=== PATIENT | female | born 1970 | race Caucasian/White ===

== ENCOUNTER 2016-12-27 20:26 | Emergency (ER) | payer OTHER ==
[~2016-12-27] VITALS: Ht 175.3 cm; Wt 95.5 kg
[~2016-12-27 20:26] MED LIST: NAPR220C2 PO
[2016-12-27 20:33] VITALS: Ht 175.3 cm; Wt 95.5 kg
--- NOTE | 2016-12-27 22:35 | RADRPT ---
PROCEDURE: US left lower extremity venous Doppler CLINICAL INDICATION: Swelling TECHNIQUE: Multiple sonographic images of the left lower extremity deep venous system was obtained utilizing grayscale, color-flow, compressive sonography and Doppler imaging with augmentation. COMPARISON: No pertinent prior examinations were submitted for comparison. FINDINGS: There is normal compressibility and flow within the left common femoral, superficial femoral, and po pliteal veins. The calf veins are not well visualized. IMPRESSION: No sonographic evidence for left deep venous thrombosis. RPTAT: HIKT .Aubrey Thakur MD, MD Date Time Electronically viewed and signed by .Aubrey Thakur MD, on 12/27/2016 22:35 .T/
[2016-12-27] MEDS ORDERED: HYDR-906 PO (23:01)
[2016-12-27] MEDS ORDERED: IBUP-1542 PO (23:02)
--- NOTE | 2016-12-27 23:07 | ERD ---
ER Documentation Chief Complaint Date/Time DATE: 12/27/16 TIME: 23:04 Chief Complaint pain left leg since yesterday HPI This is a 46-year-old female who says she woke yesterday with some pain in her left ankle with some mild swelling. She says today is gotten progressively worse. The swelling is mild located in the left malleolus laterally on the ankle and some on the foot. She is concerned she has a DVT and wants to have an ultrasound. There is no pain in the calf or thigh no swelling erythema no shortness of breath chest pain. Patient does not recall any trauma or twisting of the ankle ROS All systems reviewed and are negative except as per history of present illness. Medications Home Meds Active Scripts Ibuprofen* (Motrin*) 600 Mg Tab, 600 MG PO Q8, #30 TAB Prov:WESLEY SANCHEZSTWILLIAMS Kvng. DO 12/27/16 Hydrocodone/Acetaminophen ([place] 5-325 Tablet) 1 Each Tablet, 1 TAB PO Q6H Y for PAIN, #20 TAB Prov:LUKE SANCHEZ AZulma DO 12/27/16 Reported Medications Naproxen* (Aleve*) 220 Mg Capsule, 220 MG PO Y 02/28/13 Allergies Allergies: Coded Allergies: amoxicillin (Verified Allergy, Unknown, sob, 12/27/16) latex (Verified Allergy, Unknown, 02/28/13) tetracycline (Verified Allergy, Unknown, sob, 12/27/16) PMhx/Soc History of Surgery: Yes (C SECTION , GALL BLADDER, bilateral masectomy) Hx Psychiatric Problems: Yes (depression) Hx Alcohol Use: No Hx Substance Use: No Hx Tobacco Use: Yes Smoking Status: Former smoker FmHx Family History: No coronary disease Physical Exam Vitals Vital Signs Date Time Temp Pulse Resp B/P Pulse Ox O2 Delivery O2 Flow Rate FiO2 12/27/16 20:33 98.8 83 20 106/56 99 Physical Exam Const: Well-developed, well-nourished Head: Atraumatic, normocephalic Eyes: Normal Conjunctiva, PERRLA, EOMI, normal sclera, no nystagmus ENT: Normal External Ears, Nose and Mouth, moist mucus membranes. Neck: Full range of motion. No meningismus, no lymphadenopathy. Resp: Clear to auscultation bilaterally, no wheezing, rhonchi, rales Cardio: Regular rate and rhythm, no murmurs, S1 S2 present Abd: Soft, non tender x 4, non distended. Normal bowel sounds, no guarding or rebound, no pulsitile abdominal masses or bruits Skin: No petechiae or rashes, no ecchymosis , no maculopapular rash Back: No midline or flank tenderness Ext: No cyanosis, or edema, FROM x 4, normal inspection, neurovascularly intact x 4 left ankle has some mild swelling to the foot and lateral malleolus no erythema no calf pain negative Homans sign no cords Neur: Awake and alert, STR 5/5 x 4, sensation intact x 4, no focal findings, cerebellum intact Psych: Normal Mood and Affect Procedures/MDM PROCEDURE: US left lower extremity venous Doppler CLINICAL INDICATION: Swelling TECHNIQUE: Multiple sonographic images of the left lower extremity deep venous system was obtained utilizing grayscale, color-flow, compressive sonography and Doppler imaging with augmentation. COMPARISON: No pertinent prior examinations were submitted for comparison. FINDINGS: There is normal compressibility and flow within the left common femoral, superficial femoral, and popliteal veins. The calf veins are not well visualized. IMPRESSION: No sonographic evidence for left deep venous thrombosis. RPTAT: HIKT .Aubrey Thakur MD, MD Date Time Electronically viewed and signed by .Aubrey Thakur MD, MD on 12/27/2016 22:35 .T/ CC: LUKE SANCHEZ DO Discharge home and observe for any more swelling if she is worsening to come back for repeat sono Departure Diagnosis: Primary Impression: Left ankle pain Chronicity: acute Qualified Code: M25.572 - Acute left ankle pain Condition: Stable Patient Instructions: Sprain, Ankle, With X-Ray LUKE SANCHEZ DO December 27, 2016 23:07
[2016-12-27] MEDS ORDERED: CEPH-443 PO (23:12)
== END 2016-12-27 23:14 | disposition home or self-care (01) ==
LOC: FTE 20:26
DX: M25.572 Pain in left ankle and joints of left foot (principal); Z87.891 Personal history of nicotine dependence; Z91.040 Latex allergy status
CPT/HCPCS: 93971; Z7502

== ENCOUNTER 2017-01-15 19:51 | Emergency (ER) | payer OTHER ==
[~2017-01-15] VITALS: Ht 162.6 cm; Wt 92.0 kg
[~2017-01-15 19:51] MED LIST changes: +CEPH-443 PO; +HYDR-906 PO; +IBUP-1542 PO
[2017-01-15 19:53] VITALS: Ht 162.6 cm; Wt 92.0 kg
--- NOTE | 2017-01-15 20:08 | ERA ---
ER Documentation Chief Complaint Date/Time DATE: 01/15/17 TIME: 20:07 Chief Complaint Left-sided chest pressure radiating to right shoulder HPI The patient is a 46-year-old female, presenting to the ER because of left-sided chest pressure radiating to the right shoulder a few hours ago. She has similar symptoms previously. She complains of anxiety, the pain is worse with movement. She complains of nausea but no vomiting, denies chest pain with exertion of vomiting or diaphoresis, dyspnea, abdominal pain, dysuria, diarrhea , dysuria. She does not smoke nor drink. She normally takes pain medication for chronic low back pain Past medical history: Breast cancer, chronic low back pain, history of bradycardia, anxiety Past surgical history: , cholecystectomy, mastectomy in July 2016 ROS All systems reviewed and are negative except as per history of present illness. Medications Home Meds Active Scripts Alprazolam* (Xanax*) 0.5 Mg Tab, 0.5 MG PO QHS Y for ANXIETY, #5 TAB Prov:ARNALDO DIAZ MD 01/15/17 Cephalexin* (Keflex*) 500 Mg Capsule, 500 MG PO QID for 7 Days, CAP Prov:WESLEY SANCHEZSTALEXYS Purdy DO 12/27/16 Ibuprofen* (Motrin*) 600 Mg Tab, 600 MG PO Q8, #30 TAB Prov:LUKE SANCHEZ DO 12/27/16 Hydrocodone/Acetaminophen ([place] 5-325 Tablet) 1 Each Tablet, 1 TAB PO Q6H Y for PAIN, #20 TAB Prov:LUKE SANCHEZ DO 12/27/16 Reported Medications Naproxen* (Aleve*) 220 Mg Capsule, 220 MG PO Y 02/28/13 Allergies Allergies: Coded Allergies: cephalexin (Verified Allergy, Intermediate, 01/15/17) amoxicillin (Verified Allergy, Unknown, sob, 01/15/17) latex (Verified Allergy, Unknown, 01/15/17) tetracycline (Verified Allergy, Unknown, sob, 01/15/17) PMhx/Soc History of Surgery: Yes (C SECTION , GALL BLADDER, bilateral masectomy) Hx Psychiatric Problems: Yes (depression) Hx Alcohol Use: No Hx Substance Use: No Hx Tobacco Use: Yes Physical Exam Vitals Vital Signs Date Time Temp Pulse Resp B/P Pulse Ox O2 Delivery O2 Flow Rate FiO2 01/15/17 20:45 Nasal Cannula 2 01/15/17 19:53 99.7 64 20 139/65 97 Physical Exam Const: No acute distress. Head: Atraumatic. Eyes: Normal Conjunctiva. ENT: Normal External Ears, Nose and Mouth. Neck: Full range of motion. No meningismus. Resp: Clear to auscultation bilaterally. Cardio: Regular but bradycardic Abd: Soft, non distended, normal bowel sounds, non tender. Skin: No petechiae or rashes. Back: No midline or flank tenderness. Ext: No cyanosis, or edema. Neur: Awake and alert. No focal deficit Psych: Normal Mood and Affect. Result Diagram: 01/15/17202901/15/172029 Results 24 hrs Laboratory Tests Test 01/15/17 20:30 White Blood Count 6.810^3/ul Red Blood Count 3.8610^6/ul Hemoglobin 11.7g/dl Hematocrit 36.0% Mean Corpuscular Volume 93.3fl Mean Corpuscular Hemoglobin 30.3pg Mean Corpuscular Hemoglobin Concent 32.5g/dl Red Cell Distribution Width 13.6% Platelet Count 78152^3/UL Mean Platelet Volume 10.5fl Neutrophils % 53.2% Lymphocytes % 36.0% Monocytes % 7.0% Eosinophils % 2.8% Basophils % 0.9% Nucleated Red Blood Cells % 0.0/100WBC Neutrophils # 3.610^3/ul Lymphocytes # 2.510^3/ul Monocytes # 0.510^3/ul Eosinophils # 0.210^3/ul Basophils # 0.110^3/ul Nucleated Red Blood Cells # 0.010^3/ul Prothrombin Time 12.9Sec Prothrombin Time Ratio 1.0 INR International Normalized Ratio 0.97 Activated Partial Thromboplast Time 28.8Sec Sodium Level 137mmol/L Potassium Level 3.8mmol/L Chloride Level 106mmol/L Carbon Dioxide Level 27mmol/L Anion Gap 8 Blood Urea Nitrogen 12mg/dl Creatinine 0.73mg/dl Glucose Level 74mg/dl Calcium Level 9.0mg/dl Troponin I < 0.012ng/ml Current Medications Medications (Trade) Dose Ordered Sig/Bria Route PRN Reason Start Time Stop Time Status Last Admin Dose Admin Ondansetron HCl (Zofran Inj) 4 mg ONCE STAT IV 01/15/17 20:16 01/15/17 20:18 DC 01/15/17 20:32 Morphine Sulfate (morphine) 4 mg ONCE STAT IV 01/15/17 20:16 01/15/17 20:18 DC 01/15/17 20:33 IV Flush 10 ml 10 ml STK-MED ONCE .ROUTE 01/15/17 21:22 01/15/17 21:23 DC 01/15/17 21:39 Sodium Chloride 100 ml @ ud STK-MED ONCE .ROUTE 01/15/17 21:22 01/15/17 21:23 DC 01/15/17 21:39 Iohexol (Omnipaque) 100 ml @ ud STK-MED ONCE .ROUTE 01/15/17 21:22 01/15/17 21:23 DC 01/15/17 21:40 Iohexol (Omnipaque 350mg/ ml) 50 ml STK-MED ONCE .ROUTE 01/15/17 21:23 01/15/17 21:24 DC 01/15/17 21:40 Morphine Sulfate (morphine) 4 mg ONCE STAT IV 01/15/17 21:43 01/15/17 21:44 DC 01/15/17 21:47 Procedures/[place] [id number] Radiology Main Line: [phone] DIAGNOSTIC IMAGING REPORT Patient: ADAN BLAS : 1970 Age: 46 Sex: F MR #: [id number] DOS: 01/15/172015 Ordering MD: ARNALDO DIAZ MD Location: E/R Room/Bed: PROCEDURE: CT chest with contrast/PE protocol CLINICAL INDICATION: Chest pain and shortness of breath. History of breast cancer TECHNIQUE: The study was performed from the thoracic inlet to the upper abdomen with the use of 120 cc of Omnipaque 350 intravenous contrast material per PE protocol. Coronal/sagittal reformatted images and coronal MIP images were generated. The images were reviewed on a PACS workstation. CTDIvol = 40.48 mGy and DLP= 384.02 mGycm. COMPARISON: Chest x-ray 01/15/2017 FINDINGS: Lungs, airway and pleura: The trachea and bronchi are patent as well as normal in caliber. The lungs are clear of infiltrates, masses or nodules. The pleural spaces are clear, without effusions. Mediastinum, giana and cardiovascular: The heart is normal in size. There is no evidence for pericardial effusion. The thoracic aorta is normal in caliber and without evidence of dissection. There are no filling defects within the pulmonary arteries to suggest emboli. There is no evidence for hilar mass and no mediastinal adenopathy is present. The esophagus is normal in caliber. Osseous structures and musculoskeletal findings: There is preservation of bone architecture and mineralization with no evidence for fracture, lytic or blastic lesion. Mild thoracic spondylosis is present. Postoperative findings of the bilateral breasts are compatible with mastectomy and reconstructive surgery. The axillary regions are unremarkable. Visualized upper abdomen: Cholecystectomy clips are present. The adrenal glands are normal bilaterally. RPTAT:HJJR IMPRESSION: 1. No evidence for pulmonary embolism or acute intrathoracic abnormality. 2. Postoperative changes of the chest wall are compatible with the provided history. 3. No evidence of metastatic disease. Physician Lexi Date Time Electronically viewed and signed by Physician Lexi on 01/15/2017 21:47 JR/ CC: ARNALDO DIAZ MD [place] [address] Radiology Main Line: [phone] DIAGNOSTIC IMAGING REPORT Patient: ADAN BLAS : 1970 Age: 46 Sex: F MR #: [id number] DOS: 01/15/172015 Ordering MD: ARNALDO DIAZ MD Location: E/R Room/Bed: PROCEDURE: XR Chest. CLINICAL INDICATION: Chest pain. TECHNIQUE: PA and Lateral views of the chest were obtained. COMPARISON: None. FINDINGS: Heart size is at upper limits of normal. The lungs are clear. No signs of pleural fluid or pneumothorax are seen. The osseous structures and soft tissues are unremarkable. IMPRESSION: No evidence for active cardiopulmonary disease. RPTAT: UU Elizabeth Kuhn Physician Date Time Electronically viewed and signed by Elizabeth Kuhn Physician on 01/15/2017 20:59 RS/ CC: ARNALDO DIAZ MD EK:56 PM read by emergency physician Rate/Rhythm: Sinus bradycardia 53 beats/min QRS, ST, T-waves: No ST elevation, no T inversion Impression: Abnormal EKG EK:56 PM read by emergency physician Rate/Rhythm: Sinus bradycardia 46 beats/min QRS, ST, T-waves: No ST elevation, no T inversion Impression: Abnormal EKG MEDICAL MAKING DECISION: The patient is a 46-year-old female, presenting to the ER because of acute chest pain of unclear etiology, most likely acute musculoskeletal pain and acute anxiety. She was treated with morphine formula IV 2 for pain, Zofran 4 IV 1 for nausea with good response The differential diagnoses considered include but are not limited to acute coronary syndrome, acute myocardial infarction, pericarditis, pulmonary embolism , aortic dissection, pneumonia, pleural effusion, pneumothorax, GERD, chest wall pain. Departure Diagnosis: Primary Impression: Chest pain Additional Impressions: Anxiety Anemia Condition: Good Comments I discussed the findings with the patient. I advised the patient to follow-up with the primary physician in about 1-2 days, sooner if needed and return if any concern. She was discharged with Xanax 0.5 mg at bedtime, dispense 5 The patient's blood pressure was elevated (>120/80) but appears stable without evidence of hypertension emergency or urgency. The patient was counseled about the risks of hypertension and urged to pursue outpatient monitoring and therapy within a week with their primary care physician. ARNALDO DIAZ MD January 15, 2017 20:08
[2017-01-15] MEDS ORDERED: ONDANSETRON 4 MG INJ IV STA (20:16)
[2017-01-15] MEDS ORDERED: morphine 4 MG/ML VIAL IV STA ×2 (20:16→21:43)
[2017-01-15 20:48] LABS: ADD SCAN DIFF NO
[2017-01-15 20:55] LABS: BASOPHIL # 0.1 10^3/ul (0.0-0.1); BASOPHILS % 0.9 % (0.0-2.0); EOSINOPHILS # 0.2 10^3/ul (0.0-0.5); EOSINOPHILS % 2.8 % (0.0-7.0); HEMOGLOBIN 11.7 g/dl (12.0-16.0); LYMPHOCYTES # 2.5 10^3/ul (0.8-2.9); MEAN CORPUSCULAR HEMOGLOBIN 30.3 pg (29.0-33.0); MEAN CORPUSCULAR HGB CONC 32.5 g/dl (32.0-37.0); MEAN CORPUSCULAR VOLUME 93.3 fl (82.0-101.0); MEAN PLATELET VOLUME 10.5 fl (7.4-10.4); MONOCYTE # 0.5 10^3/ul (0.3-0.9); NEUTROPHIL # 3.6 10^3/ul (1.6-7.5); NEUTROPHILS % 53.2 % (39.0-77.0); PLATELET COUNT 194 10^3/UL (140-415); RED BLOOD COUNT 3.86 10^6/ul (4.20-5.40); RED CELL DISTRIBUTION WIDTH 13.6 % (11.5-14.5); WHITE BLOOD COUNT 6.8 10^3/ul (4.8-10.8)
--- NOTE | 2017-01-15 20:59 | RADRPT ---
PROCEDURE: XR Chest. CLINICAL INDICATION: Chest pain. TECHNIQUE: PA and Lateral views of the chest were obtained. COMPARISON: None. FINDINGS: Heart size is at upper limits of normal. The lungs are clear. No signs of pleural fluid or pneumotho rax are seen. The osseous structures and soft tissues are unremarkable. IMPRESSION: No evidence for active cardiopulmonary disease. RPTAT: UU Physician Mitesh Date Time Electronically viewed and signed by Physician Mitesh on 01/15/2017 20:59 RS/
[2017-01-15 21:13] LABS: INR 0.97; PROTIME 12.9 Sec (12.2-14.2)
[2017-01-15 21:14] LABS: PARTIAL THROMBOPLASTIN TIME 28.8 Sec (25.0-35.0)
[2017-01-15 21:15] LABS: ANION GAP 8 (8-16); BLOOD UREA NITROGEN 12 mg/dl (7-20); CARBON DIOXIDE 27 mmol/L (21-31); CHLORIDE 106 mmol/L (97-110); CREATININE 0.73 mg/dl (0.44-1.00); GLUCOSE 74 mg/dl (70-220); POTASSIUM 3.8 mmol/L (3.5-5.1); SODIUM 137 mmol/L (135-144)
[2017-01-15] MEDS ORDERED: SOD CHLORIDE 0.9% 100 ML ONE (21:22)
[2017-01-15] MEDS ORDERED: IOHEXOL 100 ML ONE (21:22)
[2017-01-15] MEDS ORDERED: IOHEXOL 350MG/ML 50 ML BTL ONE (21:23)
[2017-01-15 21:27] LABS: TROPONIN-I < 0.012 ng/ml (0.00-0.12)
--- NOTE | 2017-01-15 21:47 | RADRPT ---
PROCEDURE: CT chest with contrast/PE protocol CLINICAL INDICATION: Chest pain and shortness of breath. History of breast cancer TECHNIQUE: The study was performed from the thoracic inlet to the upper abdomen with the use of 12 0 cc of Omnipaque 350 intravenous contrast material per PE protocol. Coronal/sagittal reformatted im ages and coronal MIP images were generated. The images were reviewed on a PACS workstation. CTDIvol = 40.48 mGy and DLP= 384.02 mGycm. COMPARISON: Chest x-ray 01/15/2017 FINDINGS: Lungs, airway and pleura: The trachea and bronchi are patent as well as normal in caliber. The gerardo gs are clear of infiltrates, masses or nodules. The pleural spaces are clear, without effusions. Mediastinum, giana and cardiovascular: The heart is normal in size. There is no evidence for perica rdial effusion. The thoracic aorta is normal in caliber and without evidence of dissection. There a re no filling defects within the pulmonary arteries to suggest emboli. There is no evidence for giana r mass and no mediastinal adenopathy is present. The esophagus is normal in caliber. Osseous structures and musculoskeletal findings: There is preservation of bone architecture and min eralization with no evidence for fracture, lytic or blastic lesion. Mild thoracic spondylosis is pr esent. Postoperative findings of the bilateral breasts are compatible with mastectomy and reconstru ctive surgery. The axillary regions are unremarkable. Visualized upper abdomen: Cholecystectomy clips are present. The adrenal glands are normal bilater ally. RPTAT:HJJR IMPRESSION: 1. No evidence for pulmonary embolism or acute intrathoracic abnormality. 2. Postoperative changes of the chest wall are compatible with the provided history. 3. No evidence of metastatic disease. Physician Lexi Date Time Electronically viewed and signed by Physician Lexi on 01/15/2017 21:47 /
[2017-01-15] MEDS ORDERED: ALPR0.5T PO (22:20)
[2017-01-15 22:46] VITALS: BP 130/75; PULSE 64; RESP 18
== END 2017-01-15 22:47 | disposition home or self-care (01) ==
LOC: E/R 19:51
DX: R07.9 Chest pain, unspecified (principal); F41.9 Anxiety disorder, unspecified; D64.9 Anemia, unspecified; R11.0 Nausea; Z91.040 Latex allergy status; Z87.891 Personal history of nicotine dependence; Z85.3 Personal history of malignant neoplasm of breast
CPT/HCPCS: 36415; 71010; 71275; 80048; 84484; 85025; 85610; 85730; 96374; 96375; 96376; J2270; J2405; Q9967; Z7502; Z7610; 93005

== ENCOUNTER 2017-01-17 13:58 | Inpatient (IN) | payer OTHER ==
[~2017-01-17] VITALS: Ht 175.3 cm; Wt 96.1 kg
[~2017-01-17 13:58] MED LIST changes: +ALPR0.5T PO
[2017-01-17] MEDS ORDERED: SOD CHLORIDE 0.9% 1,000 ML IV STA (14:16)
[2017-01-17] MEDS ORDERED: morphine 4 MG/ML VIAL IV STA (14:16)
[2017-01-17] MEDS ORDERED: ONDANSETRON 4 MG INJ IV STA ×2 (14:16→18:20)
[2017-01-17 14:47] LABS: ADD SCAN DIFF NO; BASOPHILS % 0.6 % (0.0-2.0); EOSINOPHILS % 0.2 % (0.0-7.0); HEMATOCRIT 35.7 % (37.0-47.0); HEMOGLOBIN 11.6 g/dl (12.0-16.0); LYMPHOCYTES # 1.3 10^3/ul (0.8-2.9); LYMPHOCYTES % 19.9 % (15.0-51.0); MEAN CORPUSCULAR HEMOGLOBIN 30.4 pg (29.0-33.0); MEAN CORPUSCULAR HGB CONC 32.5 g/dl (32.0-37.0); MEAN CORPUSCULAR VOLUME 93.5 fl (82.0-101.0); MEAN PLATELET VOLUME 10.6 fl (7.4-10.4); MONOCYTE # 0.3 10^3/ul (0.3-0.9); MONOCYTES % 5.4 % (0.0-11.0); NEUTROPHIL # 4.7 10^3/ul (1.6-7.5); NEUTROPHILS % 73.7 % (39.0-77.0); PLATELET COUNT 177 10^3/UL (140-415); RED BLOOD COUNT 3.82 10^6/ul (4.20-5.40); RED CELL DISTRIBUTION WIDTH 13.6 % (11.5-14.5); WHITE BLOOD COUNT 6.3 10^3/ul (4.8-10.8)
[2017-01-17 15:09] LABS: INR 1.04; PARTIAL THROMBOPLASTIN TIME 27.2 Sec (25.0-35.0); PROTIME 13.6 Sec (12.2-14.2); PT RATIO 1.1
[2017-01-17 15:17] LABS: ALBUMIN 3.8 g/dl (3.3-4.9); CHLORIDE 114 mmol/L (97-110)
[2017-01-17 15:18] LABS: POTASSIUM 3.8 mmol/L (3.5-5.1); SODIUM 145 mmol/L (135-144)
[2017-01-17 15:20] LABS: ALBUMIN/GLOBULIN RATIO 1.18; ALKALINE PHOSPHATASE 47 IU/L (42-121); ANION GAP 8 (8-16); ASPARTATE AMINO TRANSFERASE 20 IU/L (15-46); BILIRUBIN,INDIRECT 0.2 mg/dl (0-1.1); BILIRUBIN,TOTAL 0.2 mg/dl (0.2-1.3); CARBON DIOXIDE 27 mmol/L (21-31); CREATININE 0.66 mg/dl (0.44-1.00)
[2017-01-17 15:21] LABS: ALANINE AMINOTRANSFERASE 32 IU/L (13-69); BLOOD UREA NITROGEN 9 mg/dl (7-20); CALCIUM 8.8 mg/dl (8.4-10.2); GLUCOSE 90 mg/dl (70-220)
[2017-01-17] MEDS ORDERED: LIDOCAINE/MYLANTA 40 ML BTL PO ONE (15:30)
[2017-01-17 15:41] LABS: TROPONIN-I < 0.012 ng/ml (0.00-0.12)
[2017-01-17] MEDS ORDERED: NOL20 PO (15:44)
[2017-01-17] MEDS ORDERED: OXYC30TA PO (15:45)
[2017-01-17] MEDS ORDERED: CARI350T PO (15:45)
[2017-01-17] MEDS ORDERED: MORP60TA37 PO (15:45)
--- NOTE | 2017-01-17 15:45 | RADRPT ---
PROCEDURE: CT Abdomen and pelvis without contrast. CLINICAL INDICATION: Right sided abdominal pain TECHNIQUE: CT scan of the abdomen and pelvis with contrast was performed on a multidetector high-r esolution CT scan. . Coronal and sagittal reformatted images were obtained from the axial source i mages. Standard CT scan of the abdomen pelvis without contrast protocols were performed. The total exam CTDI equals 14.48 mGy and the total exam DLP equals 802.51 mGy-cm. One or more of the following dose reduction techniques were used: - Automated exposure control. - Adjustment of the mA and/or kV according to patient size. Use of iterative reconstruction technique. COMPARISON: None. FINDINGS: The kidneys are normal in size without calcified renal calculi, hydronephrosis or intra renal masses bilaterally. The urinary bladder is unremarkable. The appendix is unremarkable. The stomach is unremarkable. The small and large bowel are unremarka ble. There is mild free fluid and induration involving the right lower quadrant of the abdomen and mild f ree fluid in the cul-de-sac. The uterus is anteverted but otherwise unremarkable. In the right adn exa extending to the lateral right lower quadrant of the abdomen is in the elongated undulating low to intermediate density structure that may in fact represent a hydrosalpinx or tubal ovarian abscess . A pelvic ultrasound is suggested for further evaluation. No evidence of left adnexal masses. No other abdominal free fluid free air or abscesses. No evidence of abdominopelvic lymphadenopathy. The liver spleen and if pancreas and adrenal glands are unremarkable. Status post cholecystectomy w ithout evidence of biliary ductal dilation. The aorta is unremarkable. Mild dependent lung atelectasis with the lung bases otherwise unremarkab le. There is a mild S-shaped lower thoracic lumbar scoliosis. There are degenerative changes of the low er thoracic and lumbar spine without acute osseous findings are osteoblastic/osteolytic lesions. Sta tus post mid to lower abdominal wall surgery likely for hernia. There is a small fat containing umb ilical hernia. There are multiple small fat containing supraumbilical anterior midline abdominal wa ll hernias without herniated bowel or strangulation. IMPRESSION: 1. Status post previous cholecystectomy without biliary ductal dilation. 2. No evidence of urinary calcified calculi or obstructive uropathy. 3. Mild free fluid and induration in the right lower quadrant of the abdomen and mild free fluid in the cul-de-sac. Additionally, in the right adnexa extending to the lateral right lower quadrant of the abdomen is a elongated undulating low to intermediate density structure that may in fact be a h ydrosalpinx or tubal ovarian abscess. A pelvic ultrasound is suggested for further evaluation. 4. Unremarkable appendix. 5. Evidence of previous lower abdominal wall surgery. Small fat containing and multiple supraumbil ical midline fat-containing hernia is without herniated hour strangulation. Addendum: Dr. Firas was telephoned this results on 01/17/2017 at 1530 hours. RPTAT:AAJJ Physician Fabiola Date Time Electronically viewed and signed by Physician Fabiola on 01/17/2017 15:44 BM/
[2017-01-17] MEDS ORDERED: CHOL500010 PO (15:46)
[2017-01-17] MEDS ORDERED: LYR75 PO (15:46)
[2017-01-17] MEDS ORDERED: morphine 10 MG INJ IV ONE (16:00)
[2017-01-17 16:59] LABS: ADD UMIC NO; URINE BILIRUBIN (Dip) NEGATIVE (NEGATIVE); URINE BLOOD (Dip) NEGATIVE (NEGATIVE); URINE COLOR LT. YELLOW (YELLOW); URINE GLUCOSE (Dip) NEGATIVE (NEGATIVE); URINE KETONES (Dip) 15 (NEGATIVE); URINE LEUKOCYTE ESTERASE (Dip) NEGATIVE (NEGATIVE); URINE NITRITE (Dip) NEGATIVE (NEGATIVE); URINE TOTAL PROTEIN (Dip) NEGATIVE (NEGATIVE); URINE UROBILINOGEN (Dip) 0.2 E.U./dL (0.1-1.0)
--- NOTE | 2017-01-17 17:17 | RADRPT ---
PROCEDURE: US Pelvis CLINICAL INDICATION: Pelvic pain. TECHNIQUE: Transabdominal and transvaginal sonographic evaluation of the pelvis was performed. COMPARISON: Same day CT. FINDINGS: Myometrium is heterogeneous in echotexture without fibroids. Endometrium is normal in thickness without a focal abnormality. There is a mildly complex tubular structure identified in the right adnexa. Small free pelvic fluid. MEASUREMENTS: Uterus: 10.1 x 5.9 x 7.0 cm, anteverted. Endometrium: 1.2 cm. Right ovary size: 4.4 x 2.6 x 3.3 cm Left ovary size: 2.9 x 1.6 x 2.1 cm IMPRESSION: 1. Tubular structure identified in the right adnexa, compatible with hydrosalpinx. Recommend clini gilmer correlation for pelvic inflammatory disease/salphingitis. 2. Small free fluid in the cul-de-sac. RPTAT: EE .Ren Bermudez MD, Date Time Electronically viewed and signed by .Ren Bermudez MD, on 01/17/2017 17:22 .C/
[2017-01-17] MEDS ORDERED: HYDROmorphONE 1 MG/ML SYG IV STA (18:19)
[2017-01-17] MEDS ORDERED: METOCLOPRAMIDE 10 MG INJ IV ONE (18:30)
--- NOTE | 2017-01-17 19:12 | ERA ---
ER Documentation Chief Complaint Date/Time DATE: 01/17/17 TIME: 19:08 Chief Complaint pt bib self with c/o chest pain since night, pain same, hx brst ca HPI This 46-year-old female presents for 4 days of chest pain as well as abdominal pain that began last night and her epigastric area as well as the right lower quadrant. Said the pain is severe and she also has nausea and has vomited several times. The vomit was watery without bile or blood. She denies any vaginal symptoms. Denies fevers and chills. States that she feels just generally "bad" ROS All systems reviewed and are negative except as per history of present illness. Medications Home Meds Reported Medications Cholecalciferol (Vitamin D3) 5,000 Unit Tablet, 5000 UNIT PO DAILY, TAB 01/17/17 Pregabalin* (Lyrica*) 75 Mg Capsule, 75 MG PO TID, CAP 01/17/17 Morphine Sulfate* (Ms Contin*) 60 Mg Tablet.sa, 60 MG PO TID Y for PAIN, TAB.SA 01/17/17 Oxycodone Hcl* (IR) (Oxycodone Hcl*) 30 Mg Tablet, 30 MG PO Q4H Y for PAIN, TAB 01/17/17 Carisoprodol* (Soma*) 350 Mg Tablet, 350 MG PO Q8H Y for MUSCLE SPASMS, TAB 01/17/17 Tamoxifen Citrate* (Tamoxifen Citrate*) 20 Mg Tab, 20 MG PO QHS, TAB 01/17/17 Discontinued Reported Medications Naproxen* (Aleve*) 220 Mg Capsule, 220 MG PO Y 02/28/13 Discontinued Scripts Alprazolam* (Xanax*) 0.5 Mg Tab, 0.5 MG PO QHS Y for ANXIETY, #5 TAB Prov:ARNALDO DIAZ MD 01/15/17 Cephalexin* (Keflex*) 500 Mg Capsule, 500 MG PO QID for 7 Days, CAP Prov:LEKKOS,APOSTOLOS A. DO 12/27/16 Ibuprofen* (Motrin*) 600 Mg Tab, 600 MG PO Q8, #30 TAB Prov:LEKKOS,APOSTOLOS A. DO 12/27/16 Hydrocodone/Acetaminophen (Collyer 5-325 Tablet) 1 Each Tablet, 1 TAB PO Q6H Y for PAIN, #20 TAB Prov:LUKE SANCHEZ DO 12/27/16 Allergies Allergies: Coded Allergies: cephalexin (Verified Allergy, Intermediate, 01/17/17) amoxicillin (Verified Allergy, Unknown, sob, 01/17/17) latex (Verified Allergy, Unknown, 01/17/17) tetracycline (Verified Allergy, Unknown, sob, 01/17/17) PMhx/Soc History of Surgery: Yes (C SECTION , GALL BLADDER, bilateral masectomy, back) Hx Psychiatric Problems: Yes (depression) Hx Alcohol Use: No Hx Substance Use: No Hx Tobacco Use: Yes Smoking Status: Never smoker Physical Exam Vitals Vital Signs Date Time Temp Pulse Resp B/P Pulse Ox O2 Delivery O2 Flow Rate FiO2 01/17/17 18:19 87 18 128/60 98 01/17/17 14:03 98.3 72 18 150/88 98 Physical Exam Const: [] Mild distress, appears uncomfortable Head: Atraumatic Eyes: Normal Conjunctiva ENT: Normal External Ears, Nose and Mouth. Neck: Full range of motion..~ No meningismus. Resp: Clear to auscultation bilaterally Cardio: Regular rate and rhythm, no murmurs Abd: Soft, mild epigastric and mild to moderate right pelvic tenderness without guarding or rebound, non distended. Normal bowel sounds Skin: No petechiae or rashes Back: No midline or flank tenderness Ext: No cyanosis, or edema Neur: Awake and alert and oriented 3, no focal deficits Psych: Normal Mood and Affect Result Diagram: 01/17/17 1425 01/17/17 1425 Results 24 hrs Laboratory Tests Test 01/17/17 14:25 01/17/17 14:30 01/17/17 16:00 White Blood Count 6.310^3/ul Red Blood Count 3.8210^6/ul Hemoglobin 11.6g/dl Hematocrit 35.7% Mean Corpuscular Volume 93.5fl Mean Corpuscular Hemoglobin 30.4pg Mean Corpuscular Hemoglobin Concent 32.5g/dl Red Cell Distribution Width 13.6% Platelet Count 11938^3/UL Mean Platelet Volume 10.6fl Neutrophils % 73.7% Lymphocytes % 19.9% Monocytes % 5.4% Eosinophils % 0.2% Basophils % 0.6% Nucleated Red Blood Cells % 0.0/100WBC Neutrophils # 4.710^3/ul Lymphocytes # 1.310^3/ul Monocytes # 0.310^3/ul Eosinophils # 0.010^3/ul Basophils # 0.010^3/ul Nucleated Red Blood Cells # 0.010^3/ul Prothrombin Time 13.6Sec Prothrombin Time Ratio 1.1 INR International Normalized Ratio 1.04 Activated Partial Thromboplast Time 27.2Sec Sodium Level 145mmol/L Potassium Level 3.8mmol/L Chloride Level 114mmol/L Carbon Dioxide Level 27mmol/L Anion Gap 8 Blood Urea Nitrogen 9mg/dl Creatinine 0.66mg/dl Glucose Level 90mg/dl Calcium Level 8.8mg/dl Total Bilirubin 0.2mg/dl Direct Bilirubin 0.00mg/dl Indirect Bilirubin 0.2mg/dl Aspartate Amino Transf (AST/SGOT) 20IU/L Alanine Aminotransferase (ALT/SGPT) 32IU/L Alkaline Phosphatase 47IU/L Troponin I < 0.012ng/ml Total Protein 7.0g/dl Albumin 3.8g/dl Globulin 3.20g/dl Albumin/Globulin Ratio 1.18 Lipase 55U/L Serum HCG, Qualitative NEGATIVE Urine Color LT. YELLOW Urine Clarity CLEAR Urine pH 6.0 Urine Specific Pauline 1.010 Urine Ketones 15 Urine Nitrite NEGATIVE Urine Bilirubin NEGATIVE Urine Urobilinogen 0.2 E.U./dL Urine Leukocyte Esterase NEGATIVE Urine Hemoglobin NEGATIVE Urine Glucose NEGATIVE% Urine Total Protein NEGATIVE Current Medications Medications (Trade) Dose Ordered Sig/Bria Route PRN Reason Start Time Stop Time Status Last Admin Dose Admin Sodium Chloride (NS) 1,000 ml @ 1,000 mls/hr Q1H STAT IV 01/17/17 14:16 01/17/17 15:15 DC 01/17/17 14:33 Morphine Sulfate (morphine) 4 mg ONCE STAT IV 01/17/17 14:16 01/17/17 14:19 DC 01/17/17 14:33 Ondansetron HCl (Zofran Inj) 4 mg ONCE STAT IV 01/17/17 14:16 01/17/17 14:19 DC 01/17/17 14:31 Miscellaneous Medication (Gi Cocktail (2)) 40 ml ONCE ONCE PO 01/17/17 15:30 01/17/17 15:31 DC 01/17/17 15:38 Morphine Sulfate (morphine) 6 mg ONCE ONCE IV 01/17/17 16:00 01/17/17 16:01 DC 01/17/17 15:59 Hydromorphone HCl (Dilaudid) 1 mg ONCE STAT IV 01/17/17 18:19 01/17/17 18:20 DC 01/17/17 18:27 Ondansetron HCl (Zofran Inj) 4 mg ONCE STAT IV 01/17/17 18:20 01/17/17 18:25 DC 01/17/17 18:27 Metoclopramide HCl (Reglan) 10 mg ONCE ONCE IV 01/17/17 18:30 01/17/17 18:31 DC 01/17/17 18:30 Procedures/MDM 46-year-old female with chest pain that does not appear to be ischemic as well as a tubular structure in her right adnexa seem to cause significant pain. Pain is continued although been reduced with 10 mg of morphine and 2 different doses as well as 1 mg of Dilaudid. She also has resolved vomiting but continues to have nausea after 3 doses of nausea medication including Zofran 4 mg twice as well as Reglan. She was hydrated with a liter of normal saline. He was given a GI cocktail that would not help her chest pain. Chest pain is somewhat reproducible and may be musculoskeletal in origin. She was evaluated at bedside by bill board poster , who agrees to admit the patient to the medical surgical floor for further evaluation. Patient has bradycardia in the emergency room with out hypotension. She states that her heart rate has always been low and this is normal for her. She does have no ischemic changes on EKG in negative troponin. EKG interpretation: Sinus bradycardia rate of 38, normal axis, no ST or T-wave changes concerning for acute ischemia. Normal EKG aside from bradycardia. moving van driver interpretation: Sinus bradycardia rate of 40s. No other arrhythmia. CT abdomen pelvis interpretation: Tubular structure in right adnexa, mild surrounding free fluid, no obstruction, no free air, no abnormal fat stranding, no fractures Pelvic ultrasound interpretation: Tubular structure in right adnexa with mild free fluid. Departure Diagnosis: Primary Impression: Chest pain Additional Impressions: Pelvic pain Adnexal mass Intractable pain Nausea and vomiting Condition: Stable PATTIE MAI DO January 17, 2017 19:12 EKG interpretation: PATTIE MAI DO January 17, 2017 19:12
[2017-01-17] MEDS ORDERED: HYDROCODONE/APAP (5/325) TAB PO PRN (19:30)
[2017-01-17] MEDS ORDERED: ONDANSETRON 4 MG TAB PO PRN (19:30)
[2017-01-17] MEDS: morphine 2 MG INJ IV PRN (19:36)
--- NOTE | 2017-01-17 20:50 | HP ---
DATE OF ADMISSION: 01/17/2017 The patient is a 46 -year-old who presents complaining of upper abdominal and lower abdominal pain on the right side since Wednesday. No nausea and vomiting, fever or chills. PAST MEDICAL HISTORY: History of breast cancer. PAST SURGICAL HISTORY: History of mastectomy bilaterally. VITAL SIGNS: Stable. PHYSICAL EXAMINATION: ABDOMEN: Soft and nontender, no rebound or guarding PELVIC EXAMINATION: Shows mild cervical motion tenderness. ULTRASOUND AND CT SCAN: Both show a ____ x 3.5 right hydrosalpinx. Possibly correlating with PID. ASSESSMENT: A 46 -year-old with right hydrosalpinx ____ x 3.5 cm. The patient with intractable pain requiring 10 of morphine and 1 Dilaudid for pain control, as well as, the patient will be admitted for IV antibiotics and further pain management. Dictated By: DARREN ZABALA MD /NTS Conf#: [id number] DID#: [id number]
[2017-01-17] MEDS: FAMOTIDINE 20 MG TAB PO SCH (21:07)
[2017-01-17] MEDS: HYDROCODONE/APAP (5/325) TAB PO PRN (21:07)
--- NOTE | 2017-01-17 21:15 | QN ---
Documentation Comment On-Call Laborist Given pt has an allergy to Cephalosporin, will start Gentamycin and Clindamycin for Abx choice. Spoke with pharmacy regarding Gentamycin dose and pharmacy will dose Gentamycin. DANIELLA CHÁVEZ MD January 17, 2017 21:14
[2017-01-17 21:30] VITALS: BP 139/61; RESP 19
[2017-01-17] MEDS ORDERED: GENTAMICIN IV PER PHARMACY XX SCH (21:30)
[2017-01-17 22:00] VITALS: Ht 175.3 cm; Wt 96.1 kg
[2017-01-17] MEDS ORDERED: ALPR0.5T PO (22:10)
[2017-01-17] MEDS ORDERED: ASPI-664 PO (22:12)
[2017-01-17] MEDS ORDERED: ALPRAZOLAM 0.5 MG TAB PO SCH (22:30)
[2017-01-17] MEDS ORDERED: morphine 2 MG INJ IV ONE (22:30)
[2017-01-17] MEDS: CLINDAMYCIN 900 MG/D5W (PMX) 50 ML IVPB SCH (22:48)
[2017-01-17] MEDS ORDERED: GENTAMICIN 300 MG in SOD CHLORIDE 0.9% 100 ML IVPB SCH (23:00)
[2017-01-17] MEDS ORDERED: GENTAMICIN 150 MG in SOD CHLORIDE 0.9% 100 ML IVPB SCH (23:00)
[2017-01-18] VITALS (13 sets, daily range): BP systolic 97–151; BP diastolic 56–71; PULSE 39–57; RESP 19–20
[2017-01-18] MEDS: morphine 2 MG INJ IV PRN ×2 (00:13→04:05)
[2017-01-18] MEDS: TAMOXIFEN 10 MG TAB PO SCH ×2 (01:40→20:40)
[2017-01-18] MEDS: CARISOPRODOL 350 MG TAB PO PRN ×2 (01:44→11:32)
[2017-01-18] MEDS: CLINDAMYCIN 900 MG/D5W (PMX) 50 ML IVPB SCH (06:13)
[2017-01-18] MEDS: HYDROCODONE/APAP (5/325) TAB PO PRN (06:18)
--- NOTE | 2017-01-18 07:31 | PN ---
Date/Time of Note Date/Time of Note DATE: 01/18/17 TIME: 07:29 OB Subjective Subjective Subjective A 46 -year-old with right hydrosalpinx. The patient was admitted with intractable pain requiring pain medication. Patient is receiving IV ABX for presumptive PID Patient is reporting chest pain and abdominal pain since Wednesday, she has no fever, no lower pelvic pain, no vaginal discharge OB Objective Objective Objective CBC this morning within normal limits PROCEDURE: CT Abdomen and pelvis without contrast. CLINICAL INDICATION: Right sided abdominal pain TECHNIQUE: CT scan of the abdomen and pelvis with contrast was performed on a multidetector high-resolution CT scan. . Coronal and sagittal reformatted images were obtained from the axial source images. Standard CT scan of the abdomen pelvis without contrast protocols were performed. The total exam CTDI equals 14.48 mGy and the total exam DLP equals 802.51 mGy- cm. One or more of the following dose reduction techniques were used: - Automated exposure control. - Adjustment of the mA and/or kV according to patient size. Use of iterative reconstruction technique. COMPARISON: None. FINDINGS: The kidneys are normal in size without calcified renal calculi, hydronephrosis or intra renal masses bilaterally. The urinary bladder is unremarkable. The appendix is unremarkable. The stomach is unremarkable. The small and large bowel are unremarkable. There is mild free fluid and induration involving the right lower quadrant of the abdomen and mild free fluid in the cul-de-sac. The uterus is anteverted but otherwise unremarkable. In the right adnexa extending to the lateral right lower quadrant of the abdomen is in the elongated undulating low to intermediate density structure that may in fact represent a hydrosalpinx or tubal ovarian abscess. A pelvic ultrasound is suggested for further evaluation. No evidence of left adnexal masses. No other abdominal free fluid free air or abscesses. No evidence of abdominopelvic lymphadenopathy. The liver spleen and if pancreas and adrenal glands are unremarkable. Status post cholecystectomy without evidence of biliary ductal dilation. The aorta is unremarkable. Mild dependent lung atelectasis with the lung bases otherwise unremarkable. There is a mild S-shaped lower thoracic lumbar scoliosis. There are degenerative changes of the lower thoracic and lumbar spine without acute osseous findings are osteoblastic/osteolytic lesions. Status post mid to lower abdominal wall surgery likely for hernia. There is a small fat containing umbilical hernia. There are multiple small fat containing supraumbilical anterior midline abdominal wall hernias without herniated bowel or strangulation. IMPRESSION: 1. Status post previous cholecystectomy without biliary ductal dilation. 2. No evidence of urinary calcified calculi or obstructive uropathy. 3. Mild free fluid and induration in the right lower quadrant of the abdomen and mild free fluid in the cul-de-sac. Additionally, in the right adnexa extending to the lateral right lower quadrant of the abdomen is a elongated undulating low to intermediate density structure that may in fact be a hydrosalpinx or tubal ovarian abscess. A pelvic ultrasound is suggested for further evaluation. 4. Unremarkable appendix. 5. Evidence of previous lower abdominal wall surgery. Small fat containing and multiple supraumbilical midline fat-containing hernia is without herniated hour strangulation. Addendum: Dr. Mai was telephoned this results on 01/17/2017 at 1530 hours. RPTAT:AAJJ Physician Fabiola Date Time Electronically viewed and signed by Physician Fabiola on 01/17/2017 15:44 BM/ CC: PATTIE MAI DO PROCEDURE: US Pelvis CLINICAL INDICATION: Pelvic pain. TECHNIQUE: Transabdominal and transvaginal sonographic evaluation of the pelvis was performed. COMPARISON: Same day CT. FINDINGS: Myometrium is heterogeneous in echotexture without fibroids. Endometrium is normal in thickness without a focal abnormality. There is a mildly complex tubular structure identified in the right adnexa. Small free pelvic fluid. MEASUREMENTS: Uterus: 10.1 x 5.9 x 7.0 cm, anteverted. Endometrium: 1.2 cm. Right ovary size: 4.4 x 2.6 x 3.3 cm Left ovary size: 2.9 x 1.6 x 2.1 cm IMPRESSION: 1. Tubular structure identified in the right adnexa, compatible with hydrosalpinx. Recommend clinical correlation for pelvic inflammatory disease/ salphingitis. 2. Small free fluid in the cul-de-sac. RPTAT: EE .Ren Bermudez MD, MD Date Time Electronically viewed and signed by .Ren Bermudez MD, MD on 01/17/2017 17:22 .C/ CC: PATTIE MAI DO OB Assessment/Plan Other Assessment: 46-year-old with chest pain and bradycardia Patient with known history of breast carcinoma and currently on medication Admitted for intractable pain and presumptive PID and right hydrosalpinx based on pelvic CT Other plan: Patient's main signs and symptoms are chest pain and bradycardia We will consider transferring her care to internal medicine I have spoken with the hospitalist signals collection technician today and they will be evaluating the patient today All IV antibiotics were discontinued All narcotic pain meds were discontinued Prescription for Tylenol and ibuprofen and p.o. doxycycline and was placed RICHAR INGRAM MD January 18, 2017 07:31
[2017-01-18 07:37] LABS: ADD SCAN DIFF NO
[2017-01-18 07:43] LABS: BASOPHIL # 0.1 10^3/ul (0.0-0.1); BASOPHILS % 0.8 % (0.0-2.0); EOSINOPHILS # 0.1 10^3/ul (0.0-0.5); EOSINOPHILS % 1.8 % (0.0-7.0); HEMATOCRIT 34.8 % (37.0-47.0); LYMPHOCYTES # 2.2 10^3/ul (0.8-2.9); LYMPHOCYTES % 34.6 % (15.0-51.0); MEAN CORPUSCULAR HEMOGLOBIN 29.6 pg (29.0-33.0); MEAN CORPUSCULAR HGB CONC 31.6 g/dl (32.0-37.0); MEAN CORPUSCULAR VOLUME 93.8 fl (82.0-101.0); MEAN PLATELET VOLUME 11.1 fl (7.4-10.4); MONOCYTE # 0.5 10^3/ul (0.3-0.9); MONOCYTES % 8.1 % (0.0-11.0); NEUTROPHIL # 3.4 10^3/ul (1.6-7.5); NEUTROPHILS % 54.5 % (39.0-77.0); PLATELET COUNT 162 10^3/UL (140-415); RED BLOOD COUNT 3.71 10^6/ul (4.20-5.40); RED CELL DISTRIBUTION WIDTH 13.8 % (11.5-14.5); WHITE BLOOD COUNT 6.2 10^3/ul (4.8-10.8)
[2017-01-18] MEDS ORDERED: IBUPROFEN 800 MG TAB GTB PRN (08:30)
[2017-01-18] MEDS ORDERED: ACETAMINOPHEN 325 MG TAB PO PRN (08:30)
[2017-01-18] MEDS: PREGABALIN 75 MG CAP PO SCH ×3 (09:00→12:37)
[2017-01-18] MEDS ORDERED: ALPRAZOLAM 0.25 MG TAB PO SCH (09:00)
[2017-01-18] MEDS: FAMOTIDINE 20 MG TAB PO SCH ×2 (09:02→20:33)
[2017-01-18] MEDS: ASPIRIN (EC) 81 MG TAB PO SCH (09:02)
[2017-01-18] MEDS: CHOLECALCIFEROL 1,000 UNIT TAB PO SCH (09:03)
[2017-01-18] MEDS: DOXYCYCLINE 100 MG TAB PO SCH ×2 (10:13→20:33)
[2017-01-18] MEDS ORDERED: traMADol 50 MG TAB PO PRN (11:00)
[2017-01-18] MEDS: morphine (ER) 30 MG TAB PO SCH ×2 (14:10→20:33)
[2017-01-18] MEDS: oxyCODONE 5 MG TAB PO PRN ×2 (15:17→21:40)
--- NOTE | 2017-01-18 15:25 | CONS ---
DATE OF ADMISSION: 01/17/2017 DATE OF CONSULTATION: 01/18/2017 REASON FOR CONSULTATION: Chest pain, bradycardia. CHIEF COMPLAINT: Chest pain, abdominal pain. HISTORY OF PRESENT ILLNESS: Thank you for this referral. History obtained from the patient, review of the chart and discussion with staff. This is a 46-year-old female with no past cardiac history with history of chronic low heart rate. "Per her report" she came to emergency room complaining of severe pain. The patient has had apparently multiple ER admissions. Complained of lower abdominal pain as well as chest pain. It is sharp and "pressure like." It has been lasting all day since 3 d ays ago. She could not explain exacerbating factor to it. Cardiac enzymes have been negative multi ple times. She also had a remarkable bradycardia as low as 38. However, she stated that she always has had bradycardia. She also denies any chest symptoms of bradycardia. No syncope or presyncope. She has been evaluated by PHYSICAL GEOGRAPHER and has been transferred to the internal medicine service in [facility] I will be in contact at this point. PAST MEDICAL HISTORY: As above mentioned. SOCIAL HISTORY: Does not smoke or drink, has quit smoking 5 years ago. FAMILY HISTORY: No reported early coronary artery disease. ALLERGIES: 1. AMOXICILLIN 2. CEPHALEXIN. 3. LATEX. 4. TETRACYCLINE. MEDICATIONS: As per medication reconciliation, was personally reviewed. Includes Soma, Xanax, aspi rin and MS Contin. REVIEW OF SYSTEMS: As above mentioned. PHYSICAL EXAMINATION: VITAL SIGNS: Temperature 99, heart rate of 40, blood pressure 151/68, respiration rate of 20, satur ating 98%. HEENT: Normocephalic, atraumatic. Appears in mild pain. EYES: Pupils are equal. CARDIOVASCULAR: Bradycardia. PULMONARY: With no wheezes. GASTROINTESTINAL: Soft, mild tenderness to palpation, diffuse. EXTREMITIES: No significant edema. NEUROLOGIC: Awake and alert. PSYCHIATRIC: Calm, pleasant. LABORATORY: Abdominal pelvic CT done. Shows status post cholecystectomy and no acute calculi, mild free fluid, induration in the right lower quadrant of abdomen. Mild free fluid in cul-de-sac in ad dition to right adnexa extending to the lateral right quadrant of abdomen, elongated, may be in fact hydrosalpinx or arterial renal abscess. EKG shows marked sinus bradycardia. ASSESSMENT AND PLAN: 1. Chest pain, appeared to be nonanginal with marked sinus bradycardia, appeared to be asymptomatic , chronic. 2. Abdominal discomfort. 3. Abnormal CT findings. Follow up with NETWORK COMMUNICATIONS ENGINEER. RECOMMENDATIONS: Serial angiotensin converting enzymes has been negative. I will order a CT valdovinos ry angiogram to evaluate and rule out significant coronary artery, given her recurrent pain. Cardia c troponin will be done. Echocardiogram has been ordered. Abdominal pain workup as per internal me dicine and NETWORK COMMUNICATIONS ENGINEER. Dictated By: IZZY HAMMER/JOSE Conf#: [id number] DID#: [id number]
[2017-01-18 15:55] LABS: ALBUMIN 3.5 g/dl (3.3-4.9); CHLORIDE 117 mmol/L (97-110)
[2017-01-18 15:56] LABS: POTASSIUM 3.9 mmol/L (3.5-5.1); SODIUM 144 mmol/L (135-144)
[2017-01-18 15:58] LABS: ALBUMIN/GLOBULIN RATIO 1.12; ANION GAP 3 (8-16); ASPARTATE AMINO TRANSFERASE 19 IU/L (15-46); BILIRUBIN,INDIRECT 0.1 mg/dl (0-1.1); BILIRUBIN,TOTAL 0.1 mg/dl (0.2-1.3); CARBON DIOXIDE 28 mmol/L (21-31); CREATININE 0.76 mg/dl (0.44-1.00); TOTAL PROTEIN 6.6 g/dl (6.1-8.1)
[2017-01-18 15:59] LABS: ALANINE AMINOTRANSFERASE 32 IU/L (13-69); ALKALINE PHOSPHATASE 40 IU/L (42-121); BLOOD UREA NITROGEN 10 mg/dl (7-20); CALCIUM 8.7 mg/dl (8.4-10.2); CREATINE KINASE 41 IU/L (23-200); GLUCOSE 114 mg/dl (70-220)
--- NOTE | 2017-01-18 16:01 | CONS ---
DATE OF ADMISSION: 01/17/2017 DATE OF CONSULTATION: 01/18/2017 REASON FOR CONSULTATION: Medical management. CONSULTING PHYSICIAN: SKYLER JAY MD, Internal Medicine. REQUESTING PHYSICIAN: RICHAR INGRAM MD. HISTORY OF PRESENT ILLNESS: This is a 46-year-old female with a past medical history of breast cancer status post bilateral mastectomy, who is currently on chemotherapy. She came to the emergency room with a chief complaint of upper and lower abdominal pain that was mostly right sided. The patient was also complaining of chest pain. The patient also verbalized a few episodes of nonbilious, nonbloody vomitus. The patient denied any vaginal discharge. There were no reported fevers or chills. The patient verbalized that the pain in the abdomen and chest were started on 02/15/2017. The patient takes analgesics for her chronic pain on a routine basis. The patient was admitted to the hospital under a TIN CONTAINER STRAIGHTENER services because the patient's CAT scan of the abdomen and pelvis on admission showed right adnexa extending to the lateral right lower quadrant of the abdomen which may represent either hydrosalpinx or a tubal ovarian abscess. The patient was being treated with antibiotics for any underlying pelvic inflammatory disease. The patient was admitted under OB/ TIN CONTAINER STRAIGHTENER. The patient was noticed to have significant bradycardia. The patient was transferred to telemetry floor. A medical consult was called for medical management for further evaluation of her underlying bradycardia and chest pain. PAST MEDICAL HISTORY: Breast cancer, chronic pain. PAST SURGICAL HISTORY: Bilateral mastectomy, , cholecystectomy, abdominal fat removal. HOME MEDICATIONS: 1. Tamoxifen 20 mg p.o. at bedtime. 2. Soma 350 mg p.o. q. p.r.n. muscle spasm. 3. Xanax 0.5 mg p.o. b.i.d. 4. Aspirin 81 mg p.o. daily. 5. MS Contin 60 mg p.o. t.i.d. p.r.n. pain. 6. Lyrica 75 mg p.o. t.i.d. 7. Vitamin D3 at 5000 units p.o. daily. ALLERGIES: 1. AMOXICILLIN. 2. KEFLEX. 3. LATEX 4. TETRACYCLINE. SOCIAL HISTORY: The patient lives at home. The patient is adopted. Remote history of tobacco smoke. No history of alcohol abuse or use of illicit drugs. REVIEW OF SYSTEMS: A 12-point review of systems for management review of systems was negative other than what is mentioned in history of present illness. PHYSICAL EXAMINATION: VITAL SIGNS: Temperature 99.0, pulse rate 40, respiratory rate 20, blood pressure 151/68, oxygen saturation 98% on room air. GENERAL: This is an obese female patient lying in bed in no apparent distress. HEENT: Head normocephalic and atraumatic. Eyes: Anicteric sclerae. Conjunctivae clear. ENT: Nasal septum is midline. Oral mucosa is moist. NECK: Supple. No JVD noticed. RESPIRATORY: Bilaterally clear to auscultation. No adventitious breath sounds. No use of accessory muscles of respiration. CARDIAC: Regular rate and rhythm. S1 and S2 heard. There is significant bradycardia. ABDOMEN: Soft. Surgical scar in the lower abdomen transversely. Diffuse tenderness. Bowel sounds positive in all 4 quadrants. GENITOURINARY: Deferred. EXTREMITIES: No cyanosis, no clubbing, no edema. Peripheral pulses are palpable. NEUROLOGIC: The patient is awake, alert, and oriented. Cranial nerves are grossly intact. LABORATORY AND DIAGNOSTIC DATA: WBC 6.3, hemoglobin 11.0, hematocrit 34.8, platelet count 162. Sodium 147, potassium 3.8, chloride 114, carbon dioxide 26 , anion gap 8, BUN 9, creatinine 0.66, glucose 90, calcium 8.8, AST 20, ALT 32, alkaline phosphatase 47. Urinalysis: Urine: Nitrate negative, urine leukocyte esterase negative, total protein negative. Pelvic ultrasound: Tubular structure identified in the right adnexa compatible with hydrosalpinx. CT scan of the abdomen and pelvis. Status post previous cholecystectomy without biliary ductal dilatation. No evidence of urinary calcified calculi or obstructive uropathy. Mild free fluid and induration in the right lower quadrant of the abdomen and mild free fluid in the cul-de-sac. In the right adnexa extending to bilateral right lower quadrant of the abdomen is an elongated undulating 18 low to intermediate density structure that may in fact be a hydrosalpinx or tubo-ovarian abscess. Evidence of previous abdominal wall surgery. Small fat-containing multiple supraumbilical midline fat containing hernia without strangulation. Pelvic ultrasound: Tubular structure identified in the right adnexa compatible with hydrosalpinx. IMPRESSION: This is a 46-year-old female patient with past medical history of breast cancer status post bilateral mastectomy who came to the emergency room with multiple complaints who was admitted to the hospital under BIOMEDICAL MANAGER for possible underlying pelvic inflammatory disease. She was found to have significant bradycardia and will be followed by hospitalist team. ASSESSMENT AND PLAN: 1. Chest pain. To rule out acute coronary syndrome. The patient is not aware of any family history of coronary artery disease because the patient is adopted. The patient's chest pain seems to be atypical. A 2D echocardiogram will be obtained to evaluate the left ventricular ejection fraction. Serial troponins will be ordered to evaluate for any underlying ACS. A Cardiology consult will be obtained. 2. Sinus bradycardia. Etiology unclear. The patient is not on any beta blockers. However, the patient is on opioids for chronic pain. This has been discontinued by the TIN CONTAINER STRAIGHTENER physician. The patient will be provided only with tramadol at this time. Pain management consult will be called. 3. History of breast cancer status post bilateral mastectomy. The patient is status post bilateral mastectomy. The patient is taking tamoxifen, which will be continued. 4. Chronic pain. The patient will be seen by a pain management team. The patient will be provided with adequate pain control while watching the patient' s heart rate. 5. Normocytic normochromic anemia. Etiology unclear. Will monitor the H and H closely. We will transfuse blood products as needed. 6. Right hydrosalpinx. The patient is being treated for any underlying pelvic inflammatory disease. 7. Deep venous thrombosis prophylaxis. Bilateral sequential compression devices. 8. Gastrointestinal prophylaxis. Histamine 2 receptor blockers. Plan. Continue telemetry monitoring. Call a Cardiology consult. Call Pain Management consult. Additional diagnostic and therapeutic orders will be ordered as clinically indicated. The case and management of this patient was fully discussed with Dr. Jay. Thank you, Dr. Ingram for allowing us to participate in this patient's care. We will continue to follow the patient along with you. The case and management of this patient was fully discussed with Dr. Jay. CHINEDU JAY MD, AM/JOSE Conf#: [id number] DID#: [id number]
[2017-01-18 16:08] LABS: CK-MB < 0.22 ng/ml (0.0-2.4)
[2017-01-18 16:21] LABS: TROPONIN-I < 0.012 ng/ml (0.00-0.12)
[2017-01-18] MEDS ORDERED: IOHEXOL 350MG/ML 50 ML BTL ONE (16:22)
[2017-01-18] MEDS ORDERED: SOD CHLORIDE 0.9% 100 ML ONE (16:22)
[2017-01-18] MEDS ORDERED: IOHEXOL 100 ML ONE (16:22)
[2017-01-18] MEDS ORDERED: NITROGLYCERIN AEROSOL (4.9 GM) ONE (16:41)
[2017-01-18 17:07] LABS: THYROID STIMULATING HORMONE 0.393 MIU/L (0.465-4.680)
--- NOTE | 2017-01-18 17:25 | RADRPT ---
PROCEDURE: CTA OF THE HEART AND CORONARY ARTERIES WITH CONTRAST CT CALCIUM SCORE CLINICAL INDICATION: Chest pain COMPARISON: No previous relevant images are available for comparison. TECHNIQUE: CT calcium score performed without intravenous contrast. Multiphasic ECG-gated volumetri c acquisition from the ascending aorta to the diaphragm performed with intravenous contrast on a hig h-resolution multi detector scanner with multiphasic reconstructions. Multiplanar reconstructions, t hree-dimensional reconstructions, as well as maximal intensity projection images are produced and re viewed. One or more of the following dose reduction techniques were used: Automated exposure control ; Adjustment of the mA and/or kV according to patient size; Use of iterative reconstruction techniqu e; ECG dose modulation. CTDI = 8, 8, 2, 2, 39, 83 mGy. DLP = 1574 mGy-cm. Stenosis classification of vessels greater than 1.5 mm in diameter: None0% Minimal1-24% Zpyv19-06% Icyzgxca69-00% Vkxxux72-10% Vhveenkd419% (When a vessel appears focally occluded with distal reconstitution there may be trac e patency which is below the resolution of the examination or collateral pathways may exist.) CONTRAST: 100 mL of Omnipaque 350 intravenously without adverse event. FINDINGS: CORONARY CT ANGIOGRAM: Overall quality of the CT angiographic examination is excellent. Normal origins of the coronary arteries are present. The coronary artery system is right dominant. Total calcium score: 0 Right Coronary Artery: Widely patent without focal irregularity, mural plaque, or significant stenos is. The acute marginal branch enhances normally. Posterior descending and posterior lateral coronary artery branches are widely patent. Left Main Coronary Artery: Widely patent without focal irregularity, mural plaque, or significant st enosis. Left Anterior Descending Coronary Artery: Widely patent without focal irregularity, mural plaque, or significant stenosis. Visualized septal and diagonal branches: Widely patent without focal irregularity, mural plaque, or significant stenosis. Left Circumflex Coronary Artery: Widely patent without focal irregularity, mural plaque, or signific ant stenosis. Visualized obtuse marginal branches: Widely patent throughout, without focal significant stenosis. Normal appearance of the pericardium. No pericardial effusion. Mild multichamber cardiomegaly. Normal appearing trileaflet aortic valve. Normal appearance of the mitral valve. Myocardial attenuation appears within normal limits. Left atrial appendage is well opacified. No evidence of intracardiac mass or thrombus. EXTRACARDIAC FINDINGS: Thoracic aorta: Normal caliber. Pulmonary vessels: Mild dilatation of the main pulmonary artery measuring 3.4 cm.. No evidence of c entral filling defect. Conventional pulmonary venous return. Chest: The visualized lung parenchyma is unremarkable. No mediastinal lymphadenopathy. Postoperative changes from bilateral mastectomy are evident. Abdomen: Incidental imaging of the upper abdomen is unremarkable. IMPRESSION: Total calcium score 0. Normal appearance of the coronary arteries without evidence of calcified or noncalcified plaque. Minimal dilatation of the main pulmonary artery measuring 3.4 cm, can be seen in patients with pulmo nary arterial hypertension. RPTAT: AADD .Minh Bear MD, MD Date Time Electronically viewed and signed by .Minh Bear MD, on 01/18/2017 17:25 .B/
[2017-01-18 19:55] LABS: CREATINE KINASE 41 IU/L (23-200)
[2017-01-18 20:08] LABS: CK-MB < 0.22 ng/ml (0.0-2.4); TROPONIN-I < 0.012 ng/ml (0.00-0.12)
[2017-01-18] MEDS ORDERED: NON-FORMULARY/PATIENT OWN MED (Tamoxifen Citrate* 20 MG) PO SCH (21:00)
[2017-01-18] MEDS ORDERED: FAMOTIDINE 20 MG TAB PO SCH (21:00)
[2017-01-19] VITALS (7 sets, daily range): BP systolic 120–136; BP diastolic 62–84; PULSE 38–50; RESP 18–20
[2017-01-19] MEDS: oxyCODONE 5 MG TAB PO PRN ×2 (05:12→11:12)
[2017-01-19 07:11] LABS: ADD SCAN DIFF NO
[2017-01-19 07:16] LABS: BASOPHIL # 0.1 10^3/ul (0.0-0.1); BASOPHILS % 0.9 % (0.0-2.0); EOSINOPHILS # 0.1 10^3/ul (0.0-0.5); EOSINOPHILS % 2.3 % (0.0-7.0); HEMATOCRIT 35.6 % (37.0-47.0); HEMOGLOBIN 11.2 g/dl (12.0-16.0); LYMPHOCYTES % 35.2 % (15.0-51.0); MEAN CORPUSCULAR HEMOGLOBIN 29.6 pg (29.0-33.0); MEAN CORPUSCULAR HGB CONC 31.5 g/dl (32.0-37.0); MEAN CORPUSCULAR VOLUME 93.9 fl (82.0-101.0); MEAN PLATELET VOLUME 10.8 fl (7.4-10.4); MONOCYTE # 0.5 10^3/ul (0.3-0.9); MONOCYTES % 8.2 % (0.0-11.0); NEUTROPHILS % 53.2 % (39.0-77.0); PLATELET COUNT 162 10^3/UL (140-415); RED BLOOD COUNT 3.79 10^6/ul (4.20-5.40); RED CELL DISTRIBUTION WIDTH 13.8 % (11.5-14.5); WHITE BLOOD COUNT 5.6 10^3/ul (4.8-10.8)
[2017-01-19 07:36] LABS: ALBUMIN 3.4 g/dl (3.3-4.9); ALBUMIN/GLOBULIN RATIO 1.13; BILIRUBIN,INDIRECT 0.2 mg/dl (0-1.1); BILIRUBIN,TOTAL 0.2 mg/dl (0.2-1.3); CALCIUM 8.5 mg/dl (8.4-10.2); CREATININE 0.84 mg/dl (0.44-1.00); POTASSIUM 3.7 mmol/L (3.5-5.1); TOTAL PROTEIN 6.4 g/dl (6.1-8.1)
[2017-01-19 07:41] LABS: CHOL/HDL RATIO 2.8 RATIO; CHOLESTEROL 136 mg/dl (100-200); CREATINE KINASE 34 IU/L (23-200); HDL CHOLESTEROL 47 mg/dl (34-88); MAGNESIUM 1.8 mg/dl (1.7-2.5); PHOSPHORUS 3.2 mg/dl (2.5-4.9); TRIGLYCERIDES 113 mg/dl (0-149)
[2017-01-19 08:05] LABS: CK-MB < 0.22 ng/ml (0.0-2.4); TROPONIN-I < 0.012 ng/ml (0.00-0.12)
[2017-01-19 08:06] LABS: THYROID STIMULATING HORMONE 1.88 MIU/L (0.465-4.680)
[2017-01-19] MEDS: DOXYCYCLINE 100 MG TAB PO SCH (08:55)
[2017-01-19] MEDS: FAMOTIDINE 20 MG TAB PO SCH (08:55)
[2017-01-19] MEDS: ASPIRIN (EC) 81 MG TAB PO SCH (08:55)
[2017-01-19] MEDS: morphine (ER) 30 MG TAB PO SCH (08:56)
[2017-01-19] MEDS: CHOLECALCIFEROL 1,000 UNIT TAB PO SCH (08:56)
--- NOTE | 2017-01-19 10:51 | RADRPT ---
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 Physician: CHINEDU CÁRDENAS Quality: Adequate Procedures: Transthoracic echocardiogram with complete 2D, M-Mode, and doppler examination. Indications: Chest Pain. 2D/M Mode Doppler Measurement Value Normal Ranges Measurement Value Normal Ranges LVIDd 2D 5.0 3.5 - 5.6 cm AV Peak Moshe 1.8 m/sec LVIDs 2D 3.1 2.1 - 4.1 cm AV Peak PG 12.4 mmHg LVPWd 2D 1.2 0.6 - 1.1 cm LVOT Peak Moshe 0.8 m/sec IVSd 2D 1.1 0.6 - 1.1 cm LVOT Peak PG 2.6 mmHg AoR Diam 2D 2.1 2.0 - 3.7 cm MV E Peak Moshe 1.0 m/sec EDV 2D 117.4 cm3 MV A Peak Moshe 0.7 m/sec ESV 2D 29.5 cm3 MV E/A 1.3 LA Dimen 2D 4.3 2.3 - 4.0 cm MV Decel Time 243 msec MV Decel [place] 4 MV E/A 1.3 TR Peak Moshe 2.3 m/sec TR Peak PG 20.9 mmHg RVSP 24.0 mmHg Findings Left Ventricle: Normal left ventricular systolic function. Normal left ventricular cavity size. Left ventricular wall thickness upper limits of normal. Ejection fraction is visually estimated at 65 70 %. Tissue Doppler/Mitral Doppler indices are within normal limits. Right Ventricle: Normal right ventricular size. Normal right ventricular systolic function. Left Atrium: There is mild enlargement of left atrium. Right Atrium: The right atrium is normal in size. Mitral Valve: Mitral valve leaflets appear mildly thickened. Trace mitral regurgitation. Aortic Valve: Normal appearance of the aortic valve. No significant aortic stenosis or insufficiency. Tricuspid Valve: Normal appearance of the tricuspid valve. Estimated peak PA systolic pressure 24 mmHg. There is mild tricuspid regurgitation. Pulmonic Valve: Pulmonic valve not well visualized. There is trace pulmonic regurgitation. Pericardium: Normal pericardium with no significant pericardial effusion. Aorta: Normal aortic root. IVC: Normal size and normal respiratory collapse consistent with normal right atrial pressure. Conclusions 1.Normal left ventricular systolic function. Normal left ventricular cavity size. Left ventricular wall thickness upper limits of normal. Ejection fraction is visually estimated at 65 -70 %. Tissue Doppler/Mitral Doppler indices are within normal limits. 2.There is mild enlargement of left atrium. 3.Mitral valve leaflets appear mildly thickened. Trace mitral regurgitation. 4.Normal appearance of the aortic valve. No significant aortic stenosis or insufficiency. 5.Normal appearance of the tricuspid valve. Estimated peak PA systolic pressure 24 mmHg. There is mild tricuspid regurgitation. Electronically Signed By: Roscoe Horn 19-Jan-2017 10:50:18 [id number] Patient Name: ADAN BLAS Study Date: 18-Jan-2017 [id number]
--- NOTE | 2017-01-19 11:37 | PDOCDIS ---
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
[2017-01-19] MEDS ORDERED: DOXY100T2 PO (11:38)
--- NOTE | 2017-01-19 11:57 | PN ---
DATE: 01/19/2017 CARDIOLOGY FOLLOWUP SUBJECTIVE: Discussed with the staff. Rhythm strip was reviewed. The patient remains in marked si nus bradycardia. No chest pain or pressure. Chest pain has improved significantly. Her abdominal pain is improving, but still has some. No palpitation, no syncope, no presyncope. MEDICATIONS: Reviewed as per medication reconciliation, personally reviewed. PHYSICAL EXAMINATION: VITAL SIGNS: Temperature 98.5, heart rate of 43, blood pressure 131/62, respiratory rate 20, satura ting 98%. HEENT: Normocephalic, in no acute distress. CARDIOVASCULAR: Bradycardic, systolic murmur. PULMONARY: No wheezes, no rhonchi. GASTROINTESTINAL: Soft, nontender. EXTREMITIES: No significant lower extremity edema. NEUROLOGIC: Awake and alert. PSYCHIATRIC: Appears to be calm, pleasant. LABORATORY DATA: Showed thyroid function is within normal limits with TSH of 1.88. Creatinine 0.84 , potassium 3.5. Troponin less than 0.012. LDL 63, HDL 47. Echocardiogram showed normal LV size and systolic function. CT coronary angiogram showed no signifi cant coronary artery disease with calcium score of 0. ASSESSMENT AND PLAN: 1. Sick sinus syndrome with marked sinus bradycardia, but appears to be completely asymptomatic. T he patient says she has had it for a long time, so no further cardiac workup or treatment woul d be needed at this point. 2. Chest pain has improved with normal CT coronary angiogram. 4. 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 RECOMMENDATIONS: Okay to discharge from telemetry from the cardiac standpoint. No further cardiac workup is needed at this point. Outpatient followup with her primary care physician. workup and abdominal GI workup as per internal medicine. Dictated By: IZZY FAIRCHILD MD AV/JOSE Conf#: [id number] DID#: [id number] CC: CHINEDU CÁRDENAS NP;*End*
--- NOTE | 2017-01-19 12:20 | CONS ---
DATE OF ADMISSION: 01/17/2017 DATE OF CONSULTATION: 01/19/2017 PAIN MANAGEMENT CONSULTATION HISTORY OF PRESENT ILLNESS: This information is taken from the patient's medical chart as well as f rom speaking to the patient, getting a clear past medical. She is a 46-year-old female who has a hi story of breast cancer status post bilateral mastectomies. Other than that she is unclear as to the stage of her breast cancer, but states that she was not offered radiation chemotherapy and that she was put on tamoxifen, but lately has been seen by another oncologist who states that he is reconsid ering ongoing suggestions of aggressive intervention. The patient states it was the first medical p roblem which is not a pain management issue. Her second medical problem is she states that she has low back pain secondary to an injury that occurred in 2016 in which she fell and fractured coccyx. She was recommended surgery at that time. The details of the procedure were explained to her by an orthopedic surgeon. She declined having the procedure at this time. [facility]. At this time, she has not made up her mind whether or not she wants to undergo any further intervention. She states her right lower extremity is most involved. She de scribes the pain as 7/10 at rest, increasing to 10/10 with movement. She states that she has radicu lar pain down her right lower extremity. It is an electric shock-type of pain. It does interfere w ith her daily functioning. She has had multiple epidural shots in the past which have not been succ essful. She does have a primary pain management physician who is located in [facility] who valencia s tried multiple different medications and finally ended up on combination of MS Contin 60 mg 3 time s a day and OxyContin 30 mg q.6h. p.r.n. and Lyrica 75 mg p.o. t.i.d. The patient states that she h ad some alleviation of her discomfort, but feels over the last period of time prior to this presenta tion, her pain has not been significantly controlled with the above pain control medications. Howev er, she said she is accepting of any changes in her current pain medical care, primarily because she states she understands that the standard of care these days are to try and lower the amounts of med ication for chronic pain. I emphasized this pain is not associated with her underlying breast cance r or history of breast cancer. The pain level before and after pain medications, please refer to th e above. States that only 50% of her pain is alleviated with her current pain medications, is less than it has been in the past, and does interfere with her physical functioning, but not with family relations, social relations, smooth sleeping patterns, but continues the same with overall function. Denies nausea, vomiting, constipation, pruritus mental confusion, sweating, fatigue, drowsiness as sociated with current pain control medications. There has never been a history of purposeful over s edation according to the patient or mood changes. She does not abuse or use drugs to excess. She i s a nonsmoker, nondrinker, has never been involved in any rehabilitation programs. No motor vehicle accidents in the past. No history of early renewals of her pain medications. No history of lost o r stolen prescriptions. She has been seeing 1 pain management physician and not doctor hopping. Do es not use her pain medications for situational stressors, and has no arrests or convictions for concetta g-related disorders. The patient's overall severity of her pain is considered to be moderate to sev ere. There are no warning signs. The patient denies pelvic anesthesia, incontinence of urine or fe janna, recent history of febrile illness, or severe acceleration of pain. MEDICATIONS: Please refer to reconciliation sheets. ALLERGIES: 1. AMOXICILLIN. 2. CEPHALEXIN. 3. LATEX. 4. TETRACYCLINE. 5. SHE STATES THERE IS ANOTHER ANTIBIOTIC THAT SHE IS ALLERGIC TO WHICH IS NOT LISTED IN CHART, AND SHE WAS HAVING DIFFICULTY REMEMBERING, TO BE FOLLOWED. SOCIAL HISTORY: Lives at home. No history of smoking or alcohol use. FAMILY HISTORY: Noncontributory. REVIEW OF SYSTEMS: A 12-point review of systems is unremarkable except which is as per history of p resent illness. PHYSICAL EXAMINATION: GENERAL: Shows a well-nourished, well-developed female, pleasant on examination, not appearing to b e intoxicated or sedated at all. VITAL SIGNS: Blood pressure 131/62, pulse is 63 and regular, respirations are 20, temperature 98.5 degrees, 98% saturation on room air. HEENT: She is normocephalic and atraumatic, anicteric, acyanotic. CHEST: Shows bilateral clear breath sounds throughout both lung lamb. CORONARY: S1, S2, without S3, S4, murmur, gallop, rub. Normal rate, normal rhythm. ABDOMEN: Grossly benign. NEUROLOGIC: She is oriented x3. Cranial nerves II through XII are grossly intact. Motor, sensory findings are grossly within normal limits, bilateral lower extremity motor and sensory findings are grossly intact, extensor hallucis tendon intact, flexion and extension of her ankles, inversion and eversion are both intact bilateral ankles, flexion intact both knees and in hips, negative straight leg on the ____ side, straight leg positive on the ____ side to approximately 20 degrees with radicu lar pain. There is no clubbing, cyanosis, or edema of bilateral lower extremities. LABORATORY TESTS: White blood cell count of 5.6, hemoglobin 11.2, hematocrit of 35.6, MCV of 93.9, platelet count 162,000. Chemistry: Serum sodium 139, potassium ____, chloride ____, bicarbonate 27 , BUN 11, creatinine 0.84. ASSESSMENT AND PLAN: This patient has a pain management system that she describes secondary to a fa ll with injury to her coccyx and fracture. She is maintained on longacting opioids at this time, mo rphine, MS Contin, and short-acting oxycodone. I stressed to her that we should try and get her off the longacting and switch her over the short acting, even if there are 2 short acting that have dif ferent mechanisms of action. That is to be determined by her pain management physician. Recommenda tiady per him. I have made changes in her opioids at this time since she did not present with a dmitriy n management issue as related to her lumbosacral spine, but with heavy chest pain, and she is being ruled out for acute coronary artery syndrome and for pelvic abscess. We will follow her. Will just reinstitute her current pain medications. Will discontinue any other centrally acting opioids or s edatives. ____ Dictated By: BRIAN FLORES MD, LP/JOSE Conf#: [id number] DID#: [id number]
--- NOTE | 2017-01-21 23:04 | DS ---
DATE OF ADMISSION: 01/17/2017 DATE OF DISCHARGE: 01/19/2017 FINAL DISCHARGE DIAGNOSES: 1. Chest pain, rule out acute coronary syndrome. The patient is ruled out for acute coronary syndr ome. 2. Sinus bradycardia, asymptomatic. 3. History of breast cancer, status post bilateral mastectomy. 4. History of chronic pain. 5. Normocytic normochromic anemia. 6. Right ____. 7. Presumptive pelvic inflammatory disease. CONSULTATIONS DONE DURING THIS HOSPITALIZATION: 1. Cardiology consult, Dr. Horn. 2. Pain management consult, Dr. Viet Bauer. HOSPITAL COURSE: This is a 46-year-old female with a past medical history of anxiety, history of pr evious bilateral mastectomy done for breast cancer, history of cholecystectomy and , who pr esented with a complaint of chest pain. The patient is admitted for atypical chest pain, had serial troponins and EKG negative for any acute coronary syndrome. The patient is noted to have severe br adycardia, but she remained asymptomatic without having any kind of symptoms. She had a cardiology consultation done by Dr. Horn, who recommended to have conservative management, though she did not get any procedures done while being in the hospital, and she got discharged home with followup with her primary care doctor as outpatient and irrigation installation specialist as outpatient. DISPOSITION: To home. DISCHARGE CONDITION: Stable and improved compared to admission. DISCHARGE ACTIVITIES: As tolerated. Slowly resume to the normal baseline activity. DISCHARGE MEDICATIONS: She is given new prescriptions of doxycycline 100 mg p.o. b.i.d. upon discha rge for presumptive pelvic inflammatory disease. DISCHARGE FOLLOWUP INSTRUCTIONS: The patient is to follow up with her own primary care doctor thro formerly named [facility] her HMO insurance, and she needs to follow with the irrigation installation specialist as outpatient and VASCULAR TECH as an out patient through her HMO insurance. She has been explained about the discharge plan and followup instructions. She understood and verba lized understanding. Dictated By: ALONZO LYNNE MD, KP/JOSE Conf#: [id number] DID#: [id number]
== END 2017-01-19 12:42 | disposition home or self-care (01) | DRG 759 ==
LOC: E/R 13:58 → PP2 19:06 → MS4 20:10
PROVIDERS: ATTEND Family Medicine
DX: N70.11 Chronic salpingitis (principal); R00.1 Bradycardia, unspecified; Z85.3 Personal history of malignant neoplasm of breast; Z90.13 Acquired absence of bilateral breasts and nipples; Z87.891 Personal history of nicotine dependence; Z90.49 Acquired absence of other specified parts of digestive tract; G89.29 Other chronic pain; N73.9 Female pelvic inflammatory disease, unspecified; Z79.891 Long term (current) use of opiate analgesic; Z79.810 Long term (current) use of selective estrogen receptor modulators (SERMs); F41.9 Anxiety disorder, unspecified; R07.89 Other chest pain; Z87.81 Personal history of (healed) traumatic fracture
CPT/HCPCS: 74176; 75571; 75574; 76830; 76856; 80053; 80061; 81003; 82550; 82553; 83036; 83690; 83735; 84100; 84439; 84443; 84484; 84703; 85025; 85610; 85730; 93005; 93306; 96374; 96375; 96376; J1170; J1580; J2270; J2405; J2765; J7030; Q9967

== ENCOUNTER 2017-02-15 12:45 | Emergency (ER) | payer OTHER ==
[~2017-02-15] VITALS: Ht 175.3 cm; Wt 87.5 kg
[~2017-02-15 12:45] MED LIST changes: +ASPI-664 PO; +CARI350T PO; -CEPH-443 PO; +CHOL500010 PO; +DOXY100T2 PO; -HYDR-906 PO; -IBUP-1542 PO; +LYR75 PO; +MORP60TA37 PO; -NAPR220C2 PO; +NOL20 PO; +OXYC30TA PO
[2017-02-15 12:57] VITALS: Ht 175.3 cm; Wt 87.5 kg
[2017-02-15] MEDS ORDERED: IBUPROFEN 800 MG TAB PO ONE (14:30)
[2017-02-15] MEDS ORDERED: HYDR-902 PO (14:30)
[2017-02-15] MEDS ORDERED: HYDROCODONE/APAP (10/325) TAB PO ONE (14:30)
--- NOTE | 2017-02-15 14:34 | ERD ---
ER Documentation Chief Complaint Date/Time DATE: 02/15/17 TIME: 14:31 Chief Complaint Complains of modsternal chest pain since last night HPI This is a 46-year-old female who complains of bilateral parasternal pain onset at 7 PM last night and is been there constantly ever since. My exam was it 2: 15 PM. She says the pain is described as sharp and stabbing and worse with movement. She said she was unable to sleep last night because there is no position that she was able to get into that was comfortable. She has no shortness of breath no palpitations dizziness. No radiation of pain. No pain in the neck jaw elbows shoulders ROS All systems reviewed and are negative except as per history of present illness. Medications Home Meds Active Scripts Hydrocodone/Acetaminophen ([place] 10-325 Tablet) 1 Each Tablet, 1 TAB PO Q6H Y for PAIN, #20 TAB Prov:LUKE SANCHEZ DO 02/15/17 Doxycycline* (Vibramycin*) 100 Mg Tab, 100 MG PO BID, #20 TAB Prov:ALONZO LYNNE MD 01/19/17 Reported Medications Aspirin* (Aspirin* EC) 81 Mg Tablet.dr, 81 MG PO DAILY, TAB 01/17/17 Alprazolam* (Xanax*) 0.5 Mg Tab, 0.5 MG PO BID, TAB 01/17/17 Cholecalciferol (Vitamin D3) 5,000 Unit Tablet, 5000 UNIT PO DAILY, TAB 01/17/17 Pregabalin* (Lyrica*) 75 Mg Capsule, 75 MG PO TID, CAP 01/17/17 Morphine Sulfate* (Ms Contin*) 60 Mg Tablet.sa, 60 MG PO TID Y for PAIN, TAB.SA 01/17/17 Oxycodone Hcl* (IR) (Oxycodone Hcl*) 30 Mg Tablet, 30 MG PO Q4H Y for PAIN, TAB 01/17/17 Carisoprodol* (Soma*) 350 Mg Tablet, 350 MG PO Q8H Y for MUSCLE SPASMS, TAB 01/17/17 Tamoxifen Citrate* (Tamoxifen Citrate*) 20 Mg Tab, 20 MG PO QHS, TAB 01/17/17 Allergies Allergies: Coded Allergies: cephalexin (Verified Allergy, Intermediate, 01/17/17) amoxicillin (Verified Allergy, Unknown, sob, 01/17/17) latex (Verified Allergy, Unknown, 01/17/17) tetracycline (Verified Allergy, Unknown, sob, 01/17/17) PMhx/Soc History of Surgery: Yes (Cholecystectomy, , bilateral mastectomy, bilateral breast reconstr) Anesthesia Reaction: No Hx Neurological Disorder: No Hx Respiratory Disorders: No Hx Cardiac Disorders: No Hx Psychiatric Problems: Yes (Anxiety ) Hx Miscellaneous Medical Probl: Yes (Breast cancer, tail bone injury 2007) Hx Alcohol Use: No Hx Substance Use: No Hx Tobacco Use: Yes FmHx Family History: No coronary disease Physical Exam Vitals Vital Signs Date Time Temp Pulse Resp B/P Pulse Ox O2 Delivery O2 Flow Rate FiO2 02/15/17 12:57 99.9 63 20 127/62 95 Physical Exam Const: Well-developed, well-nourished Head: Atraumatic, normocephalic Eyes: Normal Conjunctiva, PERRLA, EOMI, normal sclera, no nystagmus ENT: Normal External Ears, Nose and Mouth, moist mucus membranes. Neck: Full range of motion. No meningismus, no lymphadenopathy. Resp: Clear to auscultation bilaterally, no wheezing, rhonchi, rales, there is severe tenderness and reproducible pain in bilateral costal sternal margins. The pain is also reproducible by pushing on the posterior chest wall bilaterally. This will induce the anterior chest wall pain. Pain is also reproducible with twisting of the trunk Cardio: Regular rate and rhythm, no murmurs, S1 S2 present Abd: Soft, non tender x 4, non distended. Normal bowel sounds, no guarding or rebound, no pulsitile abdominal masses or bruits Skin: No petechiae or rashes, no ecchymosis , no maculopapular rash Back: No midline or flank tenderness Ext: No cyanosis, or edema, FROM x 4, normal inspection, neurovascularly intact x 4 Neur: Awake and alert, STR 5/5 x 4, sensation intact x 4, no focal findings, cerebellum intact Psych: Normal Mood and Affect Results 24 hrs Current Medications Medications (Trade) Dose Ordered Sig/Bria Route PRN Reason Start Time Stop Time Status Last Admin Dose Admin Ibuprofen (Motrin) 800 mg ONCE ONCE PO 02/15/17 14:30 02/15/17 14:31 Acetaminophen/ Hydrocodone Bitart ([place] (325)) 1 tab ONCE ONCE PO 02/15/17 14:30 02/15/17 14:31 Procedures/MDM EKG: Rate/Rhythm: Sinus bradycardia heart rate 53 QRS, ST, QT: NORMAL MO, QRS, QT] Impression: Sinus bradycardia Patient clearly has costochondritis/musculoskeletal chest wall pain. Patient's had constant pain for nearly 24 hours now and has reproducible pain to palpation and twisting of the trunk as well as difficulty sleeping due to positional pain Departure Diagnosis: Primary Impression: Costochondritis Condition: Stable Patient Instructions: Costochondritis LUKE SANCHEZ DO Feb 15, 2017 14:34
[2017-02-15 15:05] VITALS: BP 116/66; PULSE 66; RESP 18; TEMP 99
== END 2017-02-15 15:22 | disposition home or self-care (01) ==
LOC: E/R 12:45
DX: M94.0 Chondrocostal junction syndrome [Tietze] (principal); Z79.82 Long term (current) use of aspirin; Z85.3 Personal history of malignant neoplasm of breast; Z87.891 Personal history of nicotine dependence; Z91.040 Latex allergy status
CPT/HCPCS: 93005; Z7610

== ENCOUNTER 2017-06-02 14:48 | Emergency (ER) | payer OTHER ==
[~2017-06-02] VITALS: Ht 170.2 cm; Wt 68.2 kg
[~2017-06-02 14:48] MED LIST changes: +HYDR-902 PO
[2017-06-02 14:54] VITALS: Ht 170.2 cm; Wt 68.2 kg
[2017-06-02] MEDS ORDERED: ONDANSETRON 4 MG INJ IV STA (18:16)
[2017-06-02] MEDS ORDERED: morphine 4 MG/ML VIAL IV STA ×3 (18:16→21:26)
--- NOTE | 2017-06-02 18:20 | ERD ---
ER Documentation Chief Complaint Date/Time DATE: 06/02/17 TIME: 18:18 Chief Complaint AP, "foul smelling vag discharge" since Sat. on tamoxifen, p dbl mastectomy HPI MDM: Patient is a 46-year-old female who presents with gradual onset, constant, progressive bilateral lower quadrant abdominal pain for 5 days associated with vaginal discharge that she states is foul smelling. She denies fever, vomiting , constipation, diarrhea, dysuria or hematuria. She denies being sexually active. She denies vaginal bleeding. ROS All systems reviewed and are negative except as per history of present illness. Medications Home Meds Active Scripts Ibuprofen* (Motrin*) 600 Mg Tab, 600 MG PO Q8, #21 TAB Prov:RONDA LEON MD 06/02/17 Metronidazole* (Flagyl*) 500 Mg Tablet, 500 MG PO TID for 7 Days, TAB Prov:RONDA LEON MD 06/02/17 Reported Medications [Calcium] No Conflict Check, 1 TAB PO DAILY 06/02/17 Aspirin* (Aspirin* EC) 81 Mg Tablet.dr, 81 MG PO DAILY, TAB 01/17/17 Alprazolam* (Xanax*) 0.5 Mg Tab, 0.5 MG PO BID, TAB 01/17/17 Cholecalciferol (Vitamin D3) 5,000 Unit Tablet, 5000 UNIT PO DAILY, TAB 01/17/17 Pregabalin* (Lyrica*) 75 Mg Capsule, 75 MG PO TID, CAP 01/17/17 Morphine Sulfate* (Ms Contin*) 60 Mg Tablet.sa, 60 MG PO TID Y for PAIN, TAB.SA 01/17/17 Oxycodone Hcl* (IR) (Oxycodone Hcl*) 30 Mg Tablet, 30 MG PO Q4H Y for PAIN, TAB 01/17/17 Carisoprodol* (Soma*) 350 Mg Tablet, 350 MG PO Q8H Y for MUSCLE SPASMS, TAB 01/17/17 Tamoxifen Citrate* (Tamoxifen Citrate*) 20 Mg Tab, 20 MG PO QHS, TAB 01/17/17 Discontinued Scripts Hydrocodone/Acetaminophen ([place] 10-325 Tablet) 1 Each Tablet, 1 TAB PO Q6H Y for PAIN, #20 TAB Prov:LUKE SANCHEZ DO 02/15/17 Doxycycline* (Vibramycin*) 100 Mg Tab, 100 MG PO BID, #20 TAB Prov:ALONZO LYNNE MD 01/19/17 Allergies Allergies: Coded Allergies: cephalexin (Verified Allergy, Intermediate, 06/02/17) amoxicillin (Verified Allergy, Unknown, sob, 06/02/17) latex (Verified Allergy, Unknown, 06/02/17) tetracycline (Verified Allergy, Unknown, sob, 06/02/17) PMhx/Soc Past medical history: Breast cancer Past surgical history: Mastectomy, breast implants, tummy tuck Social history: Smokes tobacco, denies alcohol or illicit drugs History of Surgery: Yes (Cholecystectomy, , bilateral mastectomy, bilateral breast reconstr) Anesthesia Reaction: No Hx Neurological Disorder: No Hx Respiratory Disorders: No Hx Cardiac Disorders: No Hx Psychiatric Problems: Yes (Anxiety ) Hx Miscellaneous Medical Probl: Yes (Breast cancer, tail bone injury 2007) Hx Alcohol Use: No Hx Substance Use: No Hx Tobacco Use: Yes Smoking Status: Current every day smoker FmHx Family History: No coronary disease, No diabetes Physical Exam Vitals Vital Signs Date Time Temp Pulse Resp B/P Pulse Ox O2 Delivery O2 Flow Rate FiO2 06/02/17 22:00 98.1 51 16 105/72 99 Room Air 06/02/17 19:10 98.0 56 16 121/84 100 Room Air 06/02/17 14:54 98.0 70 16 120/73 99 Physical Exam Const: Alert, appears mildly uncomfortable Head: Atraumatic Eyes: Normal Conjunctiva, No pallor, no icterus ENT: Normal External Ears, Nose and Mouth. Mucous membranes moist Neck: Full range of motion..~ No meningismus. Resp: Clear to auscultation bilaterally, No wheezes, rales Cardio: Regular rate and rhythm, no murmurs Abd: Soft,Tenderness in bilateral lower quadrants and suprapubic area, no distention, no guarding, no rebound Pelvic: Normal vaginal mucosa, mild to moderate whitish discharge, no friable cervix, positive cervical tenderness Skin: No petechiae or rashes Back: No midline or flank tenderness Ext: No cyanosis, or edema Neur: Awake and alert, Cranial nerves II through XII intact bilaterally, strength and sensation full in 4 extremities. Psych: Normal Mood and Affect Result Diagram: 06/02/17191406/02/171914 Results 24 hrs Laboratory Tests Test 06/02/17 19:15 06/02/17 19:20 White Blood Count 8.710^3/ul Red Blood Count 4.3110^6/ul Hemoglobin 13.2g/dl Hematocrit 40.7% Mean Corpuscular Volume 94.4fl Mean Corpuscular Hemoglobin 30.6pg Mean Corpuscular Hemoglobin Concent 32.4g/dl Red Cell Distribution Width 13.0% Platelet Count 05412^3/UL Mean Platelet Volume 10.4fl Neutrophils % 64.6% Lymphocytes % 27.3% Monocytes % 6.0% Eosinophils % 1.0% Basophils % 0.8% Nucleated Red Blood Cells % 0.0/100WBC Neutrophils # 5.610^3/ul Lymphocytes # 2.410^3/ul Monocytes # 0.510^3/ul Eosinophils # 0.110^3/ul Basophils # 0.110^3/ul Nucleated Red Blood Cells # 0.010^3/ul Sodium Level 143mmol/L Potassium Level 3.8mmol/L Chloride Level 107mmol/L Carbon Dioxide Level 27mmol/L Anion Gap 13 Blood Urea Nitrogen 14mg/dl Creatinine 0.83mg/dl Glucose Level 93mg/dl Calcium Level 9.1mg/dl Total Bilirubin 0.3mg/dl Direct Bilirubin 0.00mg/dl Indirect Bilirubin 0.3mg/dl Aspartate Amino Transf (AST/SGOT) 22IU/L Alanine Aminotransferase (ALT/SGPT) 27IU/L Alkaline Phosphatase 61IU/L Total Protein 7.9g/dl Albumin 4.4g/dl Globulin 3.50g/dl Albumin/Globulin Ratio 1.25 Lipase 195U/L Serum HCG, Qualitative NEGATIVE Urine Color YELLOW Urine Clarity CLEAR Urine pH 6.0 Urine Specific [place] 1.017 Urine Ketones TRACEmg/dL Urine Nitrite NEGATIVEmg/dL Urine Bilirubin NEGATIVEmg/dL Urine Urobilinogen NEGATIVEmg/dL Urine Leukocyte Esterase NEGATIVELeu/ul Urine Hemoglobin NEGATIVEmg/dL Urine Glucose NEGATIVEmg/dL Urine Total Protein NEGATIVEmg/dl Current Medications Medications (Trade) Dose Ordered Sig/Bria Route PRN Reason Start Time Stop Time Status Last Admin Dose Admin Morphine Sulfate (morphine) 4 mg ONCE STAT IV 06/02/17 18:16 06/02/17 18:18 DC 06/02/17 18:38 Ondansetron HCl (Zofran Inj) 4 mg ONCE STAT IV 06/02/17 18:16 06/02/17 18:18 DC 06/02/17 18:37 Morphine Sulfate (morphine) 4 mg ONCE STAT IV 06/02/17 19:59 06/02/17 20:00 DC 06/02/17 20:07 Azithromycin (Zithromax) 1,000 mg ONCE ONCE PO 06/02/17 21:30 06/02/17 21:30 DC Azithromycin (Zithromax) 2,000 mg ONCE ONCE PO 06/02/17 21:30 06/02/17 21:31 DC 06/02/17 21:40 Gentamicin Sulfate (Gentamicin) 240 mg ONCE ONCE IM 06/02/17 21:30 06/02/17 21:40 DC 06/02/17 22:23 Metronidazole (Flagyl) 500 mg ONCE ONCE PO 06/02/17 21:30 06/02/17 21:31 DC 06/02/17 21:40 Morphine Sulfate (morphine) 4 mg ONCE STAT IV 06/02/17 21:26 06/02/17 21:30 DC 06/02/17 21:40 Procedures/MDM MDM: Patient is a 46-year-old female who presents to the ER with 5 days of bilateral pelvic pain associated with vaginal discharge. She denies fever vomiting. She initially had a nonfocal abdominal exam with bilateral lower quadrant tenderness. She has no leukocytosis or fever. Pelvic exam showed moderate secretions and cervical tenderness. Wet mount was consistent with bacterial vaginosis. Patient was given a dose of Flagyl and empiric treatment for GC and chlamydia. Pelvic ultrasound showed endometrial thickening but no evidence of ovarian torsion or significant free fluid. On reassessment, the patient complained of right lower quadrant pain, and on repeat exam she had tenderness with mild guarding focally in the right lower quadrant. There is also slight nodularity at the area of her prior scar from tummy tuck. Advised the patient to receive a CT scan to evaluate for appendicitis or incarcerated hernia. The patient refused CT scan, and understood the risk of misdiagnosis. The patient received multiple doses of IV morphine in the ER and requested additional doses, as well as requesting Dilaudid specifically. She also requested a prescription for home medications. I consulted with [facility], and the patient has 25 controlled substance prescriptions within the last 6 months. This includes a 30 day supply of both oxycodone and morphine sulfate that was prescribed 3 weeks ago. I have some suspicion that the patient may be drug- seeking, but I cannot exclude the possibility of an acute medical condition. The patient was provided a prescription for Flagyl for 7 days, and was advised to follow closely with her COMMUNICATION CLERK regarding endometrial thickening seen on ultrasound. She was also advised to return to the ER for fever, vomiting, worsening pain, or if she changes her mind regarding CT scan. Departure Diagnosis: Primary Impression: Bacterial vaginosis Additional Impression: Abdominal pain Abdominal location: right lower quadrant Qualified Code: R10.31 - Right lower quadrant abdominal pain Condition: Stable RONDA LEON MD Jun 02, 2017 18:20
[2017-06-02 19:25] LABS: BASOPHIL # 0.1 10^3/ul (0.0-0.1); BASOPHILS % 0.8 % (0.0-2.0); EOSINOPHILS # 0.1 10^3/ul (0.0-0.5); HEMATOCRIT 40.7 % (37.0-47.0); HEMOGLOBIN 13.2 g/dl (12.0-16.0); LYMPHOCYTES # 2.4 10^3/ul (0.8-2.9); LYMPHOCYTES % 27.3 % (15.0-51.0); MEAN CORPUSCULAR HEMOGLOBIN 30.6 pg (29.0-33.0); MEAN CORPUSCULAR HGB CONC 32.4 g/dl (32.0-37.0); MEAN CORPUSCULAR VOLUME 94.4 fl (82.0-101.0); MEAN PLATELET VOLUME 10.4 fl (7.4-10.4); MONOCYTE # 0.5 10^3/ul (0.3-0.9); NEUTROPHIL # 5.6 10^3/ul (1.6-7.5); NEUTROPHILS % 64.6 % (39.0-77.0); PLATELET COUNT 230 10^3/UL (140-415); RED BLOOD COUNT 4.31 10^6/ul (4.20-5.40); WHITE BLOOD COUNT 8.7 10^3/ul (4.8-10.8)
[2017-06-02 19:33] LABS: ADD UMIC NO; UR ASCORBIC ACID NEGATIVE (NEGATIVE); UR BILIRUBIN (Dip) NEGATIVE (NEGATIVE); UR BLOOD (Dip) NEGATIVE (NEGATIVE); UR CLARITY CLEAR (CLEAR); UR COLOR YELLOW (YELLOW); UR GLUCOSE (Dip) NEGATIVE (NEGATIVE); UR KETONES (Dip) TRACE mg/dL (NEGATIVE); UR LEUKOCYTE ESTERASE (Dip) NEGATIVE Leu/ul (NEGATIVE); UR NITRITE (Dip) NEGATIVE (NEGATIVE); UR SPECIFIC GRAVITY (Dip) 1.017 (1.003-1.030); UR TOTAL PROTEIN (Dip) NEGATIVE (NEGATIVE); UR UROBILINOGEN (Dip) NEGATIVE (NEGATIVE)
[2017-06-02 19:51] LABS: ALBUMIN 4.4 g/dl (3.3-4.9); ALBUMIN/GLOBULIN RATIO 1.25; BILIRUBIN,INDIRECT 0.3 mg/dl (0-1.1); BILIRUBIN,TOTAL 0.3 mg/dl (0.2-1.3); CALCIUM 9.1 mg/dl (8.4-10.2); CREATININE 0.83 mg/dl (0.44-1.00); POTASSIUM 3.8 mmol/L (3.5-5.1); TOTAL PROTEIN 7.9 g/dl (6.1-8.1)
[2017-06-02] MEDS ORDERED: CALCIUM PO (19:59)
--- NOTE | 2017-06-02 21:22 | RADRPT ---
PROCEDURE: Pelvic ultrasound. CLINICAL INDICATION: Pelvic pain TECHNIQUE: Masters scale, color doppler, spectral doppler ultrasound of the pelvis was performed with transabdominal and transvaginal transducers. COMPARISON: 01/17/2017 FINDINGS: Uterus: Position: Anteverted. 1.2 cm subserosal fibroid of the right lateral uterine body. Normal appearance of the endometrium. Ovaries: Normal size right ovary containing 3.0 cm dominant follicle. Left ovary not visualized by the home mission worker. No adnexal masses. Free fluid: None. Measurements: Endometrium (cm): 1.7 Uterus (cm): 9.8 x 6.1 x 6.5 Right ovary (cm): 3.7 x 2.6 x 2.9 IMPRESSION: New endometrial thickening is increased from previous examination. Recommend 6-week follow-up examin ation to ensure resolution. Dominant right ovarian follicle with otherwise normal appearance the right ovary. Left ovary not identified. Small uterine fibroid was not seen on the previous examination. RPTAT: AADD .Minh Bear MD, Date Time Electronically viewed and signed by .Minh Bear MD, on 06/02/2017 21:22 .B/
[2017-06-02] MEDS ORDERED: GENTAMICIN 80 MG INJ IM ONE (21:30)
[2017-06-02] MEDS ORDERED: AZITHROMYCIN 250 MG TAB PO ONE ×2 (21:30)
[2017-06-02] MEDS ORDERED: metroNIDAZOLE 500 MG TAB PO ONE (21:30)
[2017-06-02] MEDS ORDERED: METR500T PO (23:53)
[2017-06-02] MEDS ORDERED: IBUP-1542 PO (23:53)
[2017-06-03 00:20] VITALS: BP 106/70; PULSE 56; RESP 16; TEMP 98.1
== END 2017-06-03 00:20 | disposition home or self-care (01) ==
LOC: E/R 14:48
DX: N76.0 Acute vaginitis (principal); R10.31 Right lower quadrant pain; F17.210 Nicotine dependence, cigarettes, uncomplicated; R10.2 Pelvic and perineal pain; Z79.82 Long term (current) use of aspirin; Z85.3 Personal history of malignant neoplasm of breast
CPT/HCPCS: 36415; 76830; 76856; 80053; 81003; 83690; 84703; 85025; 87210; 96372; 96374; 96375; 96376; J1580; J2270; J2405; Z7502; Z7610

== ENCOUNTER 2017-11-19 15:46 | Emergency (ER) | END 2017-11-19 20:10 | disposition home or self-care (01) ==

== ENCOUNTER 2017-12-01 08:18 | Emergency (ER) | END 2017-12-01 13:49 | disposition home or self-care (01) ==

== ENCOUNTER 2017-12-19 11:12 | Emergency (ER) | END 2017-12-19 16:30 | disposition home or self-care (01) ==

== ENCOUNTER 2018-01-15 12:19 | Emergency (ER) | END 2018-01-15 14:59 | disposition home or self-care (01) ==

== ENCOUNTER 2018-02-14 15:24 | Emergency (ER) | END 2018-02-14 19:08 | disposition home or self-care (01) ==

== ENCOUNTER 2018-05-06 08:16 | Emergency (ER) | END 2018-05-06 09:37 | disposition home or self-care (01) ==

== ENCOUNTER 2019-03-07 13:08 | Emergency (ER) | payer OTHER ==
[~2019-03-07] VITALS: Ht 170.2 cm; Wt 96.7 kg
[~2019-03-07 13:08] MED LIST changes: -ASPI-664 PO; +ASPI-817 PO; +CALCIUM PO; -DOXY100T2 PO; +HYDR-3980 PO; +HYDR-4011 PO; -HYDR-902 PO; +IBUP-1542 PO; +LORA1TAB PO; +METR500T PO; +ONDA4TAB14 PO; +OXYC-279 PO
[2019-03-07 13:21] VITALS: Ht 170.2 cm; Wt 96.7 kg
[2019-03-07] MEDS ORDERED: KETOROLAC 60 MG INJ IM STA (14:48)
[2019-03-07] MEDS ORDERED: IBUP-1542 PO (17:52)
[2019-03-07] MEDS ORDERED: TRAM50TA2 PO (17:52)
[2019-03-07 18:00] VITALS: BP 130/75; PULSE 67; RESP 18
--- NOTE | 2019-03-07 19:53 | ERD ---
ER Documentation Chief Complaint Chief Complaint rt ear pain , sore throat , body ache HPI History of Present Illness: 48-year-old female with a past medical history of right breast cancer coming in today due to complaints of ear pain, throat irritation, fatigue, body aches. Patient reports fatigue and body aches been present for 2 weeks. Her pain is been present for 2 days. Patient reports double mastectomy 07/2016 in which she had implants placed. She did experience a capsular contractures of her right breast implant and had to have a replacement in November 2018. Patient reports she is concerned due to being a cancer patient on tamoxifen so At home pharmacological/nonpharmacological treatment for symptoms: Denies Denies social concerns; Denies recent foreign travel ROS All systems reviewed and are negative except as per history of present illness. Medications Home Meds Active Scripts Ibuprofen* (Motrin*) 600 Mg Tab, 600 MG PO Q6H PRN for PAIN AND OR ELEVATED TEMP, #30 TAB Prov:SHANNAN RODRIGUEZ NP 03/07/19 Tramadol HCl (Tramadol HCl) 50 Mg Tablet, 50 MG PO Q6 PRN for PAIN, #10 TAB Prov:SHANNAN RODRIGUEZ NP 03/07/19 Lorazepam* (Lorazepam*) 1 Mg Tablet, 1 MG PO Q8, #10 TAB Prov:ANDRE AGUILAR PA-C 05/06/18 Hydrocodone/Acetaminophen ([place] 5-325 Tablet) 1 Each Tablet, 1 TAB PO Q6H PRN for PAIN, #7 TAB Prov:ADELINE MIRANDA PA-C 02/14/18 Oxycodone HCl/Acetaminophen (Percocet 5-325 mg Tablet) 1 Each Tablet, 1 EACH PO DAILY, #10 TAB Prov:MAME CROSS PA-C 01/15/18 Ondansetron (Ondansetron Odt) 4 Mg Tab.rapdis, 4 MG PO Q6H PRN for NAUSEA AND/OR VOMITING, #10 TAB Prov:BRAULIO MCKEON PA-C 12/19/17 Hydrocodone/Acetaminophen ([place] 5-325 Tablet) 1 Each Tablet, 1 TAB PO Q6H PRN for PAIN, #7 TAB Prov:BRAULIO MCKEON PA-C 12/19/17 Hydrocodone/Acetaminophen ([place] 5-325 Tablet) 1 Each Tablet, 1 TAB PO Q6H PRN for PAIN, #4 TAB Prov:DAVID JOHNSON PA-C 12/01/17 Ondansetron (Ondansetron Odt) 4 Mg Tab.rapdis, 4 MG PO Q6H PRN for NAUSEA AND/OR VOMITING, #10 TAB Prov:DAVID JOHNSON PA-C 12/01/17 Hydrocodone/Acetaminophen ([place] 10-325 Tablet) 1 Each Tablet, 1 TAB PO Q6H PRN for PAIN, #15 TAB Prov:LUKE SANCHEZ DO 11/19/17 Ibuprofen* (Motrin*) 600 Mg Tab, 600 MG PO Q8, #21 TAB Prov:RONDA LEON MD 06/02/17 Metronidazole* (Flagyl*) 500 Mg Tablet, 500 MG PO TID for 7 Days, TAB Prov:RONDA LEON MD 06/02/17 Reported Medications [Calcium] No Conflict Check, 1 TAB PO DAILY 06/02/17 Aspirin* (Aspirin* EC) 81 Mg Tablet.dr, 81 MG PO DAILY, TAB 01/17/17 Alprazolam* (Xanax*) 0.5 Mg Tab, 0.5 MG PO BID, TAB 01/17/17 Cholecalciferol (Vitamin D3) 5,000 Unit Tablet, 5000 UNIT PO DAILY, TAB 01/17/17 Pregabalin* (Lyrica*) 75 Mg Capsule, 75 MG PO TID, CAP 01/17/17 Morphine Sulfate* (Ms Contin*) 60 Mg Tablet.sa, 60 MG PO TID PRN for PAIN, TAB.SA 01/17/17 Oxycodone Hcl* (IR) (Oxycodone Hcl*) 30 Mg Tablet, 30 MG PO Q4H PRN for PAIN, TAB 01/17/17 Carisoprodol* (Soma*) 350 Mg Tablet, 350 MG PO Q8H PRN for MUSCLE SPASMS, TAB 01/17/17 Tamoxifen Citrate* (Tamoxifen Citrate*) 20 Mg Tab, 20 MG PO QHS, TAB 01/17/17 Allergies Allergies: Coded Allergies: cephalexin (Verified Allergy, Intermediate, 01/15/18) amoxicillin (Verified Allergy, Unknown, sob, 11/19/17) latex (Verified Allergy, Unknown, 11/19/17) tetracycline (Verified Allergy, Unknown, sob, 11/19/17) PMhx/Soc History of Surgery: Yes (mastectomy, , gallbladder, breast implants) Anesthesia Reaction: No Hx Neurological Disorder: No Hx Respiratory Disorders: No Hx Cardiac Disorders: No Hx Psychiatric Problems: Yes (Anxiety ) Hx Miscellaneous Medical Probl: Yes (breat cancer, fibriods, capsular contra ctures) Hx Alcohol Use: No Hx Substance Use: No Hx Tobacco Use: Yes (cig once a week) Smoking Status: Never smoker FmHx Family History: No coronary disease Physical Exam Vitals Vital Signs Date Temp Pulse Resp B/P (MAP) Pulse Ox O2 O2 Flow FiO2 Time Delivery Rate 03/07/19 98.2 67 18 130/75 98 Room Air 18:00 (93) 03/07/19 98.0 72 18 130/82 97 13:21 (98) Physical Exam Const: No acute distress, afebrile Head: Atraumatic Eyes: Normal Conjunctiva ENT: Normal External Ears, Nose and Mouth. Neck: Full range of motion. No meningismus. Resp: Clear to auscultation bilaterally Cardio: Regular rate and rhythm, no murmurs Abd: Soft, non tender, non distended. No guarding, no masses, no rigidity Skin: No petechiae or rashes Back: No midline or flank tenderness Ext: No cyanosis, or edema Neur: Awake and alert x3, speaking in clear sentences, no focal deficits or facial asymmetry Psych: Normal Mood and Affect Breast: Right breast with no warmth, erythema, skin changes, nipple inversion patient with pain upon movement of the breast implant throughout pocket, patient appears to have a double bubble with right breast implant. No abnormal findings to left breast. Result Diagram: 03/07/19 1447 03/07/19 1447 Results 24 hrs Laboratory Tests Test 03/07/19 14:47 White Blood Count 8.0 10^3/ul Red Blood Count 4.28 10^6/ul Hemoglobin 13.4 g/dl Hematocrit 41.1 % Mean Corpuscular Volume 96.0 fl Mean Corpuscular Hemoglobin 31.3 pg Mean Corpuscular Hemoglobin Concent 32.6 g/dl Red Cell Distribution Width 12.0 % Platelet Count 219 10^3/UL Mean Platelet Volume 9.9 fl Immature Granulocytes % 0.400 % Neutrophils % 71.5 % Lymphocytes % 20.8 % Monocytes % 6.2 % Eosinophils % 0.4 % Basophils % 0.7 % Nucleated Red Blood Cells % 0.0 /100WBC Immature Granulocytes # 0.030 10^3/ul Neutrophils # 5.7 10^3/ul Lymphocytes # 1.7 10^3/ul Monocytes # 0.5 10^3/ul Eosinophils # 0.0 10^3/ul Basophils # 0.1 10^3/ul Nucleated Red Blood Cells # 0.0 10^3/ul Urine Color YELLOW Urine Clarity CLEAR Urine pH 7.0 Urine Specific [place] 1.009 Urine Ketones NEGATIVE mg/dL Urine Nitrite NEGATIVE mg/dL Urine Bilirubin NEGATIVE mg/dL Urine Urobilinogen NEGATIVE mg/dL Urine Leukocyte Esterase NEGATIVE Socrates/ul Urine Hemoglobin NEGATIVE mg/dL Urine Glucose NEGATIVE mg/dL Urine Total Protein NEGATIVE mg/dl Urine Test NEGATIVE Sodium Level 144 mmol/L Potassium Level 4.0 mmol/L Chloride Level 107 mmol/L Carbon Dioxide Level 28 mmol/L Anion Gap 9 Blood Urea Nitrogen 12 mg/dl Creatinine 0.76 mg/dl Est Glomerular Filtrat Rate mL/min > 60 mL/min Glucose Level 95 mg/dl Calcium Level 9.7 mg/dl Total Bilirubin 0.7 mg/dl Direct Bilirubin 0.00 mg/dl Indirect Bilirubin 0.7 mg/dl Aspartate Amino Transf (AST/SGOT) 27 IU/L Alanine Aminotransferase (ALT/SGPT) 24 IU/L Alkaline Phosphatase 77 IU/L Total Protein 7.7 g/dl Albumin 4.3 g/dl Globulin 3.40 g/dl Albumin/Globulin Ratio 1.26 Current Medications Medications Dose Sig/Bria Start Time Status Last (Trade) Ordered Route PRN Stop Time Admin Dose Reason Admin Ketorolac 60 mg ONCE STAT 03/07/19 DC 03/07/19 Tromethamine IM 14:48 15:12 (Toradol) 03/07/19 14:49 Procedures/MDM ED COURSE: ED course includes a thorough examination and history. The patient was stable throughout ED course. I kept the patient and/or family informed of laboratory and diagnostic imaging results throughout the ED course. LABS: CBC: no e/o of systemic infection or severe anemia CMP: no e/o severe acidosis, alkalosis, renal failure, diabetic ketoacidosis, liver disease Urinalysis negative MEDICATIONS GIVEN IN ER: Ketorolac Patient tolerated medication well with no adverse reactions. Patient reported improvement in pain. DIAGNOSTIC IMAGING: Read by radiologist. Right breast ultrasound IMPRESSION: Limited right breast ultrasound is unremarkable. Unremarkable right breast implant. Clinical follow-up is recommended for the patient's breast pain and possible capsular contracture. If there is clinical concern for implant-related abnormality, consider breast MRI for further evaluation. ACR BIRADS Category 2: BENIGN RPTAT:PP .Iris Jimenes MD, MD Date Time Electronically viewed and signed by .Iris Jimenes MD, on 03/07/2019 17:40 PROCEDURES: None. MEDICAL DECISION MAKING: Low suspicion for life-threatening medical emergency. Low suspicion for infectious process. Otherwise healthy patient presenting with constellation of symptoms likely representing uncomplicated [x] as characterized by history, physical exam findings, lab findings, imaging findings. Patient reassessment @ 1750: Patient hemodynamically stable. No respiratory distress, otherwise relatively well appearing and nontoxic. Disposition given. Patient educated on diagnoses, prescriptions, follow-up care, return precautions. Strict return precautions given for worsening condition; questions answered discharge. Patient verbalizes understanding of discharge instructions. PRESCRIPTIONS FOR HOME: Tramadol, ibuprofen DISPOSITION: DISCHARGE At this time, patient is stable for discharge and outpatient management. I have instructed the patient to follow-up with his/her primary care physician in 1-2 days. I have discussed with the patient the possibility of needing to see a specialist for further workup and imaging studies if symptoms persist. I have instructed the patient to promptly return to the ER for any new or worsening symptoms including increased pain, fever, nausea, vomiting, weakness or LOC. The patient and/or family expressed understanding of and agreement with this plan. All questions were answered. Home care instructions were provided. DISCLAIMER: Inadvertent spelling and grammatical errors are likely due to EHR/dictation software use and do not reflect on the overall quality of patient care. Also, please note that the electronic time recorded on this note does not necessarily reflect the actual time of the patient encounter. Departure Diagnosis: Primary Impression: Myalgia Additional Impressions: Fatigue Breast pain, right Allergic rhinitis Condition: Stable Patient Instructions: Generalized Weakness, Myalgias Referrals: COMMUNITY CLINICS YOU HAVE RECEIVED A MEDICAL SCREENING EXAM AND THE RESULTS INDICATE THAT YOU DO NOT HAVE A CONDITION THAT REQUIRES URGENT TREATMENT IN THE EMERGENCY DEPARTMENT. FURTHER EVALUATION AND TREATMENT OF YOUR CONDITION CAN WAIT UNTIL YOU ARE SEEN IN YOUR DOCTORS OFFICE WITHIN THE NEXT 1-2 DAYS. IT IS YOUR RESPONSIBILITY TO MAKE AN APPOINTMENT FOR FOLOW-UP CARE. IF YOU HAVE A PRIMARY DOCTOR --you should call your primary doctor and schedule an appointment IF YOU DO NOT HAVE A PRIMARY DOCTOR YOU CAN CALL OUR PHYSICIAN REFERRAL HOTLINE AT IF YOU CAN NOT AFFORD TO SEE A PHYSICIAN YOU CAN CHOSE FROM THE FOLLOWING [facility] [address] [facility]. [facility] [address] [facility] [address] [facility] [address] [facility] [facility] [address] [facility] [facility] [address] [facility]. [facility] YOU HAVE RECEIVED A MEDICAL SCREENING EXAM AND THE RESULTS INDICATE THAT YOU DO NOT HAVE A CONDITION THAT REQUIRES URGENT TREATMENT IN THE EMERGENCY DEPARTMENT. FURTHER EVALUATION AND TREATMENT OF YOUR CONDITION CAN WAIT UNTIL YOU ARE SEEN IN YOUR DOCTORS OFFICE WITHIN THE NEXT 1-2 DAYS. IT IS YOUR RESPONSIBILITY TO MAKE AN APPOINTMENT FOR FOLOW-UP CARE. IF YOU HAVE A PRIMARY DOCTOR --you should call your primary doctor and schedule and appointment IF YOU DO NOT HAVE A PRIMARY DOCTOR YOU CAN CALL OUR PHYSICIAN REFERRAL HOTLINE AT . IF YOU CAN NOT AFFORD TO SEE A PHYSICIAN YOU CAN CHOSE FROM THE FOLLOWING [facility] INSTITUTIONS: [facility] [address] [place] [address] [facility] [address] [place] [address] [facility] [place] [address] [place] [address] Additional Instructions: Thank you very much for allowing us to participate in your care. Your health and safety is our top priority at [facility]. It is important to read all discharge instructions and education provided in your discharge packet. *See surgeon for follow-up in regards to capsular contracture to rule out this finding. An MRI will likely be needed to further evaluate this.* Call your primary care doctor TOMORROW for an appointment during the next 2-4 days and bring all the information and medications prescribed. Have prescriptions filled and follow precisely the directions on the label. If the symptoms get worse and your provider is unavailable, return to the Emergency Department immediately. SHANNAN RODRIGUEZ NP Mar 07, 2019 19:53
== END 2019-03-07 18:01 | disposition home or self-care (01) ==
LOC: E/R 13:08 → FTE 18:01
DX: M79.10 Myalgia, unspecified site (principal); N64.4 Mastodynia; J30.9 Allergic rhinitis, unspecified
CPT/HCPCS: 76642; 80053; 81003; 84703; 85025; J1885; 96372